=== PATIENT | male | born 1950 | race Caucasian/White ===

== ENCOUNTER 2022-11-08 11:28 | Inpatient (IN) | payer MEDICARE, SELFPAY ==
[2022-11-08] VITALS (30 sets, daily range): BP systolic 99–138; BP diastolic 49–103; PULSE 80–109; RESP 16–26; TEMP 36.1–37.1; O2SAT 95–100; BMI 30.8
--- NOTE | ~2022-11-08 | XR_ITS ---
XR chest 1V portable DATE: 11/14/2022 05:52 INDICATION: Pulmonary edema TECHNIQUE: Portable AP chest on 11/14/2022 at 0531 hours COMPARISON: portable AP chest at 0802 hours FINDINGS: Status post sternotomy and probable coronary bypass graft surgery. Cardiomegaly. Aortic arc h calcification. There is pulmonary vascular congestion. There is prominent left lower lobe infiltrate or atelectasis and mild diffuse infiltrate in the remai juan pablo lung oseguera. Pulmonary edema as well as pneumonia are considerations. Minimal blunting of left c ostophrenic angle suggests small left pleural effusion. No pneumothorax. IMPRESSION: Status post sternotomy and probable CABG Cardiac megaly, aortic atherosclerosis Congestive changes Bilateral infiltrates, most prominent in the left lower lobe Reviewed, dictated and finalized at location A.
--- NOTE | ~2022-11-08 | XR_ITS ---
Portable chest x-ray Comparison: 11/14/2022 Clinical History: Pulmonary edema Findings: There is minimal haziness which is relatively asymmetric in the left lung. Right lung esse ntially clear. No definite pleural effusion. Cardiomediastinal silhouette is stable, status post CAB G. Bones and soft tissues are unremarkable. Impression: Minimal asymmetric left lung haziness. Correlate for mild asymmetric pulmonary edema. Reviewed, dictated and finalized at location . Impression: Minimal asymmetric left lung haziness. Correlate for mild asymmetric pulmonary edema.
--- NOTE | ~2022-11-08 | XR_ITS ---
XR chest 2V 11/08/2022 12:41 Indication: Shortness of breath. CHF. Bilateral lower extremity edema. Procedure: 2 view chest Comparison: No prior studies for comparison. Findings: Status post median sternotomy for CABG. Cardiomegaly. Extensive bilateral airspace disease, left greater than right. Small pleural effusions. No pneumothorax. No acute osseous abnormality. Impression: 1: Extensive asymmetric anomaly left-sided airspace disease which may represent asymmetric edema or p neumonia. 2: Cardiomegaly. 3: Small pleural effusions. Reviewed, dictated and finalized at location B. Impression: 1: Extensive asymmetric anomaly left-sided airspace disease which may represent asymmetric edema or pneumonia. 2: Cardiomegaly. 3: Small pleural effusions.
--- NOTE | ~2022-11-08 | XR_ITS ---
EXAMINATION: XR chest 1V portable DATE: 11/13/2022 08:16 INDICATION: Assess fluid status TECHNIQUE: frontal view of the chest was obtained. COMPARISON: Chest radiograph dated 11/08/2022 FINDINGS: Diffuse interstitial and mild airspace opacities with peribronchial cuffing consistent with mild pulm onary edema. More dense retrocardiac opacities at the left lower lung zone with blunting at costophre david angle consistent with small left pleural effusion and associated atelectasis versus pneumonia. No pneumothorax or right-sided pleural effusion. Cardiomegaly. Median sternotomy wires and mediastinal surgical clips are seen, likely from prior coronary artery bypass grafting. IMPRESSION: 1. Likely congestive heart failure with cardiomegaly and diffuse mild pulmonary edema. 2. More dense opacity left lower lung zone consistent with small left pleural effusion and associated atelectasis and/or pneumonia. Reviewed, dictated and finalized at location A. IMPRESSION: 1. Likely congestive heart failure with cardiomegaly and diffuse mild pulmonary edema. 2. More dense opacity left lower lung zone consistent with small left pleural e ffusion and associated atelectasis and/or pneumonia.
--- NOTE | 2022-11-08 11:34 | ECG_ITS ---
Measurements Intervals [place] Rate: 98 P: HI: 0 QRS: 84 QRSD: 95 T: -23 QT: 359 QTc: 458 Interpretive Statements ATRIAL FIBRILLATION WITH ABERRANT CONDUCTION OR VENTRICULAR PREMATURE COMPLEXES NONSPECIFIC ST & T-WAVE ABNORMALITY COMPARED TO ECG 05/11/2018 11:07:37 ABERRANT CONDUCTION OF SUPRAVENTRICULAR BEAT(S) NOW PRESENT Electronically Signed On 11-09-2022 11:08:26 CDT by Brett Malik M.D.
[2022-11-08 12:43] LABS: Basophils Absolute Auto 0.1 K/mm3 (0.0-0.1); Basophils Percent Auto 0.8 % (0.2-1.2); Eosinophils Absolute Auto 0.1 K/mm3 (0-0.3); Eosinophils Percent Auto 0.8 % (0-4.4); Hematocrit 23.7 % (42.0-52.0); Immature Granulocyte Absolute 0.03 K/mm3 (0.00-0.031); Immature Granulocyte Percent A 0.3 % (0-0.5); Lymphocytes Absolute Auto 0.45 K/mm3 (0.9-3.2); Mean Corpuscular HGB Conc 29.1 g/dl (32-36); Mean Corpuscular Hemoglobin 23.8 pg (26-34); Mean Corpuscular Volume 81.7 fl (80-100); Mean Platelet Volume 10.8 fl (7.4-10.4); Monocytes Absolute Auto 1.5 K/mm3 (0.1-0.6); Monocytes Percent Auto 16.6 % (2.6-8.5); Neutrophils Absolute Auto 6.8 K/mm3 (1.3-6.7); Neutrophils Percent Auto 76.5 % (45.5-73.1); Platelet Count Result 244 k/mm3 (150-375); Red Cell Distribution Width 15.9 % (11.5-14.5); White Blood Count 8.9 K/mm3 (4.5-10.0)
[2022-11-08 12:52] LABS: Appearance Urine Cloudy (Clear); Bacteria Urine None Seen /hpf; Bilirubin Urine 1+ (Negative); Blood Urine 3+ (Negative); Color Urine Dark Yellow (Yellow); Glucose Urine UA Negative (Negative); Ketones Urine Negative (Negative); Leukocyte Esterase Ur 2+ LEU/UL (Negative); Nitrate Urine Negative (Negative); Non Pathogenic Casts 0-2; Protein Urine 1+ mg/dL (Negative); RBC Urine >100 /hpf (0-2); Specific Grav Ur 1.017 (1.001-1.035); Squamous Epithelial Cell Urine None seen /hpf (Few); WBC Urine 51-100 /hpf
[2022-11-08 12:53] LABS: Alanine Aminotransferase 22 U/L (6-50); Albumin Level 3.8 g/dL (3.5-5.1); Alkaline Phosphatase 89 U/L (38-126); Anion Gap 4 mmol/L (8-16); Aspartate Amino Transferase 27 U/L (17-59); Bilirubin,Total 1.1 mg/dL (0.2-1.3); Blood Urea Nitrogen 20 mg/dL (9-20); Carbon Dioxide 27 mmol/L (22-30); Chloride 97 mmol/L (98-107); Estimated Glomerular Filt Rate > 60; Glucose 111 mg/dL (65-110); Potassium 3.6 mmol/L (3.4-5.0); Sodium 128 mmol/L (137-145)
[2022-11-08 13:05] LABS: INR 2.2; Partial Thromboplastin Time 40.7 SECONDS (22.3-36.8)
[2022-11-08 13:06] LABS: Hemoglobin 6.9 g/dL (14.0-18.0); NT Pro B Type Natriuretic Pept 3720 pg/mL (19.9-100); Troponin I 0.181 ng/mL (0.000-0.034)
[2022-11-08 13:07] LABS: Hypochromasia 1+ (NORMAL); Platelet Estimate Adequate (Adequate)
[2022-11-08 13:08] LABS: Ovalocytes 2+ (NORMAL); Poikilocytosis 1+ (NORMAL); Schistocytes 1+ (NORMAL)
[2022-11-08 13:14] LABS: Add Urine Microscopic? YES
--- NOTE | 2022-11-08 14:10 | ED.SOB ---
HPI - SOB/Dyspnea General Chief Complaint: Shortness of Breath/Dyspnea Stated Complaint: CHF, SOB Time Seen by Provider: 11/08/22 13:23 History of Present Illness HPI Narrative: Patient is a 72-year-old male who presents ER with shortness of breath. Ongoing over the last 2 weeks. Associate with lower extremity edema. He does have history of CHF. Upon arrival he was found to have low O2 sats. Patient has cough with deep breath and also has orthopnea. He is anticoagulated on Eliquis chronically. He does have atrial fibrillation. Denies chest pain or chest pressure. Denies any dark black stools. Related Data Home Medications Medication Instructions Recorded Confirmed amlodipine 5 mg tablet 5 mg PO DAILY 11/08/22 11/08/22 apixaban 5 mg tablet (Eliquis) 5 mg PO BID 11/08/22 11/08/22 aspirin 81 mg tablet 81 mg PO DAILY 11/08/22 11/08/22 ferrous sulfate 47.5 mg PO DAILY 11/08/22 11/08/22 furosemide 20 mg tablet 20 mg PO DAILY 11/08/22 11/08/22 irbesartan 300 1 tablet PO DAILY 11/08/22 11/08/22 mg-hydrochlorothiazide 12.5 mg tablet isosorbide mononitrate 30 mg 30 mg PO DAILY 11/08/22 11/08/22 tablet,extended release 24 hr nebivolol 2.5 mg tablet 2.5 mg PO DAILY 11/08/22 11/08/22 omega-3 fatty acids 1,000 mg PO DAILY 11/08/22 11/08/22 ropinirole 0.25 mg tablet 0.25 mg PO BID 11/08/22 11/08/22 Allergies Allergy/AdvReac Type Severity Reaction Status Date / Time codeine Allergy Unknown Verified 04/06/18 09:22 propoxyphene Allergy Unknown Verified 04/06/18 09:22 Sulfa (Sulfonamide Allergy Unknown Verified 04/06/18 09:22 Antibiotics) clindamycin AdvReac Severe ACID REFLUX Verified 05/15/18 10:17 PROPOXYPHENE HCL Allergy Severe RASH, Uncoded 05/15/18 10:17 SWELLING PROPOXYPHENE NAPSYLATE Allergy Severe SWELLING, Uncoded 05/15/18 10:17 RASH Review of Systems Review of Systems: All systems reviewed & are unremarkable except as noted in HPI and below Constitutional: Constitutional: Denies chills, Reports fatigue and Denies fever(s) ENT: Denies nasal congestion and Denies sore throat Cardiovascular: Cardiovascular: Denies chest pain, Denies rapid heart rate and Denies radiating jaw, neck or arm pain Comments: Positive orthopnea Respiratory: Respiratory: Reports cough, Reports dyspnea and Denies wheezing Gastrointestinal: Gastrointestinal: Denies abdominal pain, Denies nausea and Denies vomiting Genitourinary: Genitourinary: Denies dysuria and Denies urinary frequency Integumentary/Breasts: Skin/Breast: Reports system reviewed and no additional complaints, except as docu Neurologic: Reports system reviewed and no additional complaints, except as documented [facility] Past Medical History Medical History (Updated 11/08/22 @ 19:25 by Nik Blue MD) Benign essential hypertension Chronic atrial fibrillation Gastroesophageal reflux disease without esophagitis Prostate cancer screening Umbilical hernia without obstruction and without gangrene Family History Family History Mother Diabetes mellitus Family history of arthritis Father Hypertension Family history of cardiovascular disease Family history of congestive heart failure Social History Social History Smoking packs per day: 2 Smoking cigarettes per day: 40.0 Years smoked: 22 Smoking pack-years: 44.00 Smoking status: Former smoker Alcohol intake: former Substance use: never Lack of Transportation: YES Lack of Food: Never True Current Housing: I Have Housing Concerned About Future Housing: No Difficulty Paying Gas/Electric Bills: No Difficulty Paying for Meds: No Currently Unemployed: No Education: High School Diploma/GED Difficulty w/ Childcare or Family Care: No Spiritual care concerns: No Exam Narrative: GENERAL: Chronically ill-appearing, well-nourished, and in no acute distress. HEAD: Normocephalic, atraumatic. EYES:
[2022-11-08] MEDS: ACETAMINOPHEN 325 MG TABLET 650 MG PO (14:20)
[2022-11-08] MEDS: FUROSEMIDE INJ 40 MG/4 ML VIAL IV PUSH (14:21)
[2022-11-08] MEDS: AZITHROMYCIN 500 MG/NS 250 ML 500 MG/250 ML BAG 250 MG IVPB (14:56)
[2022-11-08] MEDS: SODIUM CHLORIDE 0.9% IV 250 ML 30 ML IV CONT (16:57)
[2022-11-08] MEDS: TUBING, BLOOD PLUM PUMP TUBING 1 EACH XX (16:58)
--- NOTE | 2022-11-08 17:29 | ADMGEN ---
This patient, Jose Bhatti, was admitted to IMU Room 207-01. Patient/family oriented to hospital policies and general routines including ID bracelet, bed and alarms, visiting hours, pain management, procedures, bathroom and other care routines, personal items, smoking policy, room service/diet, and visiting hours. Information on how to activate the Rapid Response Team has been discussed. Patient/Family are encouraged to report perceived risks to care and to ask questions if they do not understand what they are told or what they should do.
[2022-11-08 17:38] LABS: Troponin I 0.332 ng/mL (0.000-0.034)
[2022-11-08] MEDS: HYDROcodone/acetaminophen (*CRX) 5-325 MG TABLET 1 TAB PO (18:36)
--- NOTE | 2022-11-08 19:06 | PM.IMHP ---
H&P: HPI History of Present Illness Date/Time: 11/08/22 19:06 Chief Complaint: Shortness of breathe Narrative: This a 72-year-old male patient came to the emergency room for shortness of breath. This has been occurring for least 2 weeks. The patient also has some lower extremity edema. He does have a history of congestive heart failure. The patient was found have low O2 saturation was placed on oxygen at 2 L per nasal cannula. The patient does not typically wear oxygen at home the patient is anticoagulated san on Eliquis chronically. He does have a history of atrial fibrillation. The patient denied any chest pain or chest pressure he denies any dark stools. His hemoglobin was noted to be 6.9 and hematocrit 23.7 but no prior labs for comparison. Patient's MCV was within normal limits. Sodium is 128 again no labs for comparison. Troponin 0.181, 0.332, and 0.241. BNp 3720. The patient is positive for urinary tract infection. Chest x ray : Extensive asymmetric anomaly left-sided airspace disease which may represent asymmetric edema or pneumonia. 2:? Cardiomegaly. 3:? Small pleural effusions. The patient was started on a azithromycin and rocephin. IV Lasix, IV fluids and a 2 units of prbcs blood transfusion . cardiology has been consulted. The patient typically has all of his care performed at [facility] in [place]. the patient is being admitted to observation status on the date of service of . Review of Systems Review of Systems: All systems reviewed & are unremarkable except as noted in HPI and below Constitutional: Constitutional: Reports as per HPI and Reports no additional constitutional complaints Eyes: Eyes: Reports as per HPI and Reports no additional eye complaints ENT: Reports system reviewed and no additional complaints, except as documented and Reports Normal hearing present Cardiovascular: Cardiovascular: Reports no additional cardiovascular complaints Respiratory: Respiratory: Reports no additional respiratory complaints and Reports no additional respiratory complaints Gastrointestinal: Gastrointestinal: Reports as per HPI and Reports no additional gastrointestinal complaints Musculoskeletal: Musculoskeletal: Reports no additional musculoskeletal complaints Integumentary/Breasts: Skin/Breast: Reports system reviewed and no additional complaints, except as docu and Reports as per HPI Neurologic: Reports system reviewed and no additional complaints, except as documented, Reports as per HPI and Reports Normal hearing present Psychiatric: Psychiatric: Reports no additional psychiatric complaints and Reports as per HPI Endocrine: Endocrine: Reports no additional endocrine complaints Hematologic/Lymphatic: Hematologic/Lymphatic: Reports no additional hematologic/lymphatic complaints Allergic/Immunologic: Allergic/Immunologic: Reports no additional allergic/immunologic complaints [facility] Past Medical History Medical History (Updated 11/08/22 @ 23:52 by Catrachita Rebolledo NP) Benign essential hypertension Bladder cancer Chronic atrial fibrillation DVT (deep venous thrombosis) Gastroesophageal reflux disease without esophagitis Hyperlipidemia Hypertension Prostate cancer screening Umbilical hernia without obstruction and without gangrene UTI (urinary tract infection) Surgical History Surgical History (Updated 11/08/22 @ 23:47 by Catrachita Rebolledo NP) H/O cataract extraction H/O four vessel coronary artery bypass graft H/O heart artery stent History of appendectomy History of bladder surgery History of tonsillectomy and adenoidectomy S/P colonoscopy with polypectomy Family History Family History Mother Diabetes mellitus Family history of arthritis Father Hypertension Family history of cardiovascular disease Family history of congestive heart failure Social History Social History (Updated 11/08/22 @ 23:48 by Catrachita
[2022-11-08 20:49] LABS: Troponin I 0.241 ng/mL (0.000-0.034)
[2022-11-09] VITALS (28 sets, daily range): BP systolic 91–123; BP diastolic 42–77; PULSE 75–128; RESP 16–22; TEMP 36.4–37.7; O2SAT 93–100; BMI 30.9
[2022-11-09] MEDS: HYDROcodone/acetaminophen (*CRX) 5-325 MG TABLET 1 TAB PO ×3 (00:28→22:24)
[2022-11-09 00:29] LABS: Hematocrit 26.2 % (42.0-52.0); Hemoglobin 7.7 g/dL (14.0-18.0)
[2022-11-09] MEDS: TUBING, BLOOD PLUM PUMP TUBING 1 EACH XX (00:29)
[2022-11-09 01:22] LABS: SARS-CoV-2 RNA PCR Negative (Negative)
[2022-11-09] MEDS: IPRATROPIUM BR 0.02% INH SOLN 0.5 MG/2.5 ML VIAL INHALATION ×4 (01:41→20:00)
[2022-11-09] MEDS: ALBUTEROL SULFATE NEB 2.5 MG/3 ML INH INHALATION ×4 (01:41→20:00)
[2022-11-09 05:03] LABS: Basophils Absolute Auto 0.1 K/mm3 (0.0-0.1); Basophils Percent Auto 0.6 % (0.2-1.2); Eosinophils Absolute Auto 0.1 K/mm3 (0-0.3); Eosinophils Percent Auto 0.8 % (0-4.4); Hematocrit 29.1 % (42.0-52.0); Hemoglobin 8.7 g/dL (14.0-18.0); Immature Granulocyte Absolute 0.08 K/mm3 (0.00-0.031); Immature Granulocyte Percent A 0.6 % (0-0.5); Lymphocytes Absolute Auto 0.66 K/mm3 (0.9-3.2); Lymphocytes Percent Auto 4.7 % (18.3-44.2); Mean Corpuscular HGB Conc 29.9 g/dl (32-36); Mean Corpuscular Hemoglobin 25.1 pg (26-34); Mean Corpuscular Volume 83.9 fl (80-100); Monocytes Absolute Auto 1.5 K/mm3 (0.1-0.6); Monocytes Percent Auto 10.6 % (2.6-8.5); Neutrophils Absolute Auto 11.6 K/mm3 (1.3-6.7); Neutrophils Percent Auto 82.7 % (45.5-73.1); Platelet Count Result 213 k/mm3 (150-375); Red Blood Count 3.47 M/mm3 (4.6-6.20); Red Cell Distribution Width 16.7 % (11.5-14.5)
[2022-11-09 05:10] LABS: Lactic Acid Reflex 0.9 mmol/L (0.7-2.0)
[2022-11-09 05:13] LABS: Alanine Aminotransferase 21 U/L (6-50); Albumin Level 3.8 g/dL (3.5-5.1); Alkaline Phosphatase 87 U/L (38-126); Anion Gap 9 mmol/L (8-16); Aspartate Amino Transferase 27 U/L (17-59); Bilirubin,Total 2.7 mg/dL (0.2-1.3); Blood Urea Nitrogen 16 mg/dL (9-20); Calcium 8.5 mg/dL (8.4-10.2); Carbon Dioxide 27 mmol/L (22-30); Chloride 96 mmol/L (98-107); Estimated CRCL calculation 93 ml/min; Estimated Glomerular Filt Rate > 60; Glucose 105 mg/dL (65-110); Magnesium 1.9 mg/dL (1.6-2.3); Potassium 3.6 mmol/L (3.4-5.0); Sodium 132 mmol/L (137-145)
[2022-11-09 05:40] LABS: Thyroid Stimulating Hormone Reflex 0.937 uIU/mL (0.465-4.68)
[2022-11-09 05:50] LABS: Platelet Estimate Adequate (Adequate)
[2022-11-09 05:51] LABS: Anisocytosis 1+ (NORMAL); Hypochromasia 1+ (NORMAL); Poikilocytosis 2+ (NORMAL); Polychromasia 1+ (NORMAL)
[2022-11-09 05:52] LABS: Microcytosis 1+ (NORMAL); Schistocytes Rare (NORMAL)
[2022-11-09] MEDS: rOPINIRole HCL 0.25 MG TABLET PO ×2 (09:05→20:53)
[2022-11-09] MEDS: OMEGA 3 POLYUNSAT FATTY ACIDS 1 GM CAP PO (09:05)
[2022-11-09] MEDS: amLODIPine BESYLATE 5 MG TABLET PO (09:06)
[2022-11-09] MEDS: NEBIVOLOL HCL 2.5 MG TABLET PO (09:06)
[2022-11-09] MEDS: FERROUS SULFATE DRIED 142 MG TABCR PO (09:06)
[2022-11-09] MEDS: ASPIRIN 81 MG ENTERIC TABLET PO (09:06)
[2022-11-09] MEDS: FUROSEMIDE INJ 40 MG/4 ML VIAL IV PUSH ×2 (09:06→13:31)
[2022-11-09] MEDS: ISOSORBIDE MONONITRATE 30 MG TAB.ER.24H PO (09:07)
[2022-11-09] MEDS: IRBESARTAN 150 MG TABLET 300 MG PO (09:07)
[2022-11-09] MEDS: APIXABAN 5 MG TABLET PO ×2 (09:07→20:53)
[2022-11-09] MEDS: hydroCHLOROthiazide 12.5 MG CAPSULE PO (09:07)
[2022-11-09 11:21] LABS: Hemoglobin 8.4 g/dL (14.0-18.0)
--- NOTE | 2022-11-09 11:26 | PM.CNCAR ---
Assessment and Plan Assessment and plan (1) Acute on chronic diastolic CHF (congestive heart failure): Code(s): I50.33 - Acute on chronic diastolic (congestive) heart failure Status: Acute Assessment and Plan: Acute on chronic heart failure, presumably diastolic, aggravated by severe anemia. --requesting old records and echo from [place] from his hospitalization in August --extra furosemide 40 mg today, and continue 40 mg IV push daily --daily BMP --further recommendations to follow (2) Elevated troponin: Code(s): R77.8 - Other specified abnormalities of plasma proteins Status: Acute Assessment and Plan: Mildly elevated troponins noted, with no anginal chest pain and no ischemic EKG changes. Nonischemic myocardial injury due to CHF, anemia, and AFib RVR. No further workup needed. (3) Persistent atrial fibrillation: Code(s): I48.19 - Other persistent atrial fibrillation Status: Acute Assessment and Plan: AFib, probably persistent, at times with RVR and heart rates in the 120s-130s. Aggravated by the patient's anemia and CHF. --Eliquis is being continued due to lack of overt acute bleeding --patient's home nebivolol 2.5 mg is being continued --will add p.r.n. IV Lopressor to control heart rate --hopefully heart rate will improve as patient becomes better compensated. (4) Microcytic anemia: Code(s): D50.9 - Iron deficiency anemia, unspecified Status: Acute Assessment and Plan: Severe microcytic anemia, no overt bleeding. Status post 2 units of packed cells overnight. This apparently is his 3rd blood transfusion in the last 6 months. Has not had a GI evaluation yet but that is planned for the future. --continue Nexium --daily H&H (5) History of CAD (coronary artery disease): Code(s): Z86.79 - Personal history of other diseases of the circulatory system Status: Acute Assessment and Plan: Remote CABG, coronary stents since then, no anginal problems. --recommend DC aspirin due to anemia and continue Eliquis --not on a statin; will ask pt/daughter why not. (6) Aortic valve disease: Code(s): I35.9 - Nonrheumatic aortic valve disorder, unspecified Status: Acute Assessment and Plan: Exam suggested degree of aortic stenosis and mitral regurgitation. Had an echo done in August and was told nothing to worry about. --requesting echo results from [place] (7) DVT (deep venous thrombosis): Code(s): I82.409 - Acute embolism and thrombosis of unspecified deep veins of unspecified lower extremity Status: Acute Assessment and Plan: Remote DVT ; not likely to be a problem at present due to pt taking Eliquis. History of Present Illness History of Present Illness Consult date/time: 11/09/22 11:26 Reason For Visit: Anemia/Hypoxia/Pneumonia/CHF Narrative: Jose Bhatti is a 72 y.o.male whom we were asked to see at the request of Dr. Nik Blue for our advice and opinion regarding elevated troponins in CHF exacerbation, in consultation. He has a history of CHF and atrial fibrillation. His primary care doctor is Dr. Garcia, and he sees Dr. Gould at [facility]. The patient has had shortness of breath, cough, orthopnea and lower extremity edema for the last 2 weeks. He was hypoxic on admission to the emergency room and started on O2. He was found to be in heart failure by chest x-ray and elevated pro BNP of 3700. Also a microcytic anemic with a hematocrit of 24. Troponins were: 0.181, 0.332 and 0.241. He was given a dose of Lasix IV yesterday and this morning. He is being started on antibiotics for possible pneumonia and UTI. He had 2 units of packed cells on admission as well. The Mr. Bhatti had a heart attack complicated by heart failure and 4 vessel CABG in the . Since then he has had stents and balloon angioplasty, but nothing recently. He does not hav
[2022-11-09] MEDS: BENZONATATE 100 MG CAPSULE PO ×2 (13:28→18:04)
[2022-11-09] MEDS: guaiFENesin 12 HR 600 MG TABCR PO ×2 (13:28→20:53)
[2022-11-09] MEDS: AZITHROMYCIN 500 MG/NS 250 ML 500 MG/250 ML BAG 250 MG IVPB (14:07)
--- NOTE | 2022-11-09 15:25 | PM.IMPN ---
Progress Note: A&P Assessment and Plan (1) Anemia: Code(s): D64.9 - Anemia, unspecified Status: Acute Assessment and Plan: The patient has been type and crossmatch and given 2 units packed red blood cells. The patient is on Eliquis for DVTs the patient denies having any active bleeding. We will check his stool for occult blood, continue with iron supplement MCV is normal. H&H is 6.9 and 23.7 check H&H every 6 hours (2) Pneumonia: Code(s): J18.9 - Pneumonia, unspecified organism Status: Acute Assessment and Plan: Azithromycin and Rocephin have been started. (3) UTI (urinary tract infection): Code(s): N39.0 - Urinary tract infection, site not specified Status: Acute Assessment and Plan: Rocephin ordered. Blood and urine cultures are pending (4) Hyponatremia: Code(s): E87.1 - Hypo-osmolality and hyponatremia Status: Acute Assessment and Plan: Watch bmp and sodium levels (5) Hyperlipidemia: Code(s): E78.5 - Hyperlipidemia, unspecified Status: Acute Assessment and Plan: The patient is intolerant of statins. Continue with [place] 3 (6) DVT (deep venous thrombosis): Code(s): I82.409 - Acute embolism and thrombosis of unspecified deep veins of unspecified lower extremity Status: Acute Assessment and Plan: Continue with Eliquis is the patient is not actively bleeding (7) Hypertension: Code(s): I10 - Essential (primary) hypertension Status: Acute Assessment and Plan: Continue with amlodipine, Avapro and bystolic (8) CHF (congestive heart failure): Code(s): I50.9 - Heart failure, unspecified Status: Acute Assessment and Plan: The patient has had most of his medical care at [facility] we will attempt to get his echo results from that hospital. Continue with Lasix and beta-sofy Subjective Date/time seen: 11/09/22 15:25 Interval history: 72-year-old male patient came to the emergency room for shortness of breath.? This has been occurring for least 2 weeks.? The patient also has some lower extremity edema.? He does have a history of congestive heart failure.? The patient was found have low O2 saturation was placed on oxygen at 2 L per nasal cannula.? The patient does not typically wear oxygen at home the patient is anticoagulated san on Eliquis chronically.? Pt found to have pneumonia and fluid overload on CXR Pt being treated for pneumonia and CHF Review of Systems Review of Systems: Complains of cough Exam Const: General: healthy appearing, comfortable, no acute distress, well developed, alert, awake, Physically active, average body habitus, well nourished and overweight Objective Data Vital Signs Vital Signs: Vital Signs - 24 hr 11/08/22 15:30 11/08/22 15:31 11/08/22 15:45 Temperature Pulse Rate 109 H 101 H 109 H Respiratory Rate 21 H 21 H 20 Blood Pressure 108/64 Pulse Oximetry 99 98 Oxygen Delivery Oxygen Flow Rate 11/08/22 15:46 11/08/22 16:00 11/08/22 16:01 Temperature Pulse Rate 96 107 H 98 Respiratory Rate 21 H 21 H 18 Blood Pressure 111/49 L 132/77 Pulse Oximetry 99 99 100 Oxygen Delivery Oxygen Flow Rate 11/08/22 16:48 11/08/22 17:08 11/08/22 17:25 Temperature 37.1 C 36.9 C 36.1 C L Pulse Rate 98 96 93 Respiratory Rate 25 H 17 20 Blood Pressure 121/77 121/89 120/69 Pulse Oximetry 100 98 100 Oxygen Delivery Oxygen Flow Rate 11/08/22 18:05 11/08/22 19:08 11/08/22 17:30 Temperature 36.1 C L 36.4 C L Pulse Rate 93 88 100 Respiratory Rate 20 24 H Blood Pressure 120/69 122/63 Pulse Oximetry 100 98 Oxygen Delivery Oxygen Flow Rate 11/08/22 18:00 11/08/22 17:30 11/08/22 20:00 Temperature 36.4 C Pulse Rate 98 88 Respiratory Rate 18 Blood Pressure 121/61 Pulse Oximetry 98 98 Oxygen Delivery Nasal Cannula Oxygen Flow Rate 1 11/08/22 20:08
[2022-11-09 18:13] LABS: Hematocrit 30.8 % (42.0-52.0); Hemoglobin 9.2 g/dL (14.0-18.0)
[2022-11-10] VITALS (19 sets, daily range): BP systolic 83–108; BP diastolic 41–63; PULSE 58–152; RESP 16–20; TEMP 36.1–36.8; O2SAT 93–99
[2022-11-10] MEDS: ALBUTEROL SULFATE NEB 2.5 MG/3 ML INH INHALATION ×4 (02:05→19:31)
[2022-11-10] MEDS: IPRATROPIUM BR 0.02% INH SOLN 0.5 MG/2.5 ML VIAL INHALATION ×4 (02:05→19:31)
[2022-11-10 05:40] LABS: Anion Gap 5 mmol/L (8-16); Blood Urea Nitrogen 20 mg/dL (9-20); Calcium 8.5 mg/dL (8.4-10.2); Carbon Dioxide 29 mmol/L (22-30); Chloride 92 mmol/L (98-107); Estimated CRCL calculation 67 ml/min; Estimated Glomerular Filt Rate > 60; Glucose 101 mg/dL (65-110); Potassium 3.4 mmol/L (3.4-5.0); Sodium 126 mmol/L (137-145)
[2022-11-10] MEDS: IRBESARTAN 150 MG TABLET 300 MG PO (09:00)
[2022-11-10] MEDS: PANTOPRAZOLE 40 MG TABLET PO (09:01)
[2022-11-10] MEDS: BENZONATATE 100 MG CAPSULE PO ×3 (09:01→16:12)
[2022-11-10] MEDS: rOPINIRole HCL 0.25 MG TABLET PO ×2 (09:01→22:12)
[2022-11-10] MEDS: guaiFENesin 12 HR 600 MG TABCR PO ×2 (09:01→22:11)
[2022-11-10] MEDS: NEBIVOLOL HCL 2.5 MG TABLET PO ×2 (09:01→15:04)
[2022-11-10] MEDS: hydroCHLOROthiazide 12.5 MG CAPSULE PO (09:01)
[2022-11-10] MEDS: APIXABAN 5 MG TABLET PO ×2 (09:01→22:11)
[2022-11-10] MEDS: OMEGA 3 POLYUNSAT FATTY ACIDS 1 GM CAP PO (09:01)
[2022-11-10] MEDS: FERROUS SULFATE DRIED 142 MG TABCR PO (09:01)
[2022-11-10] MEDS: ISOSORBIDE MONONITRATE 30 MG TAB.ER.24H PO (09:01)
[2022-11-10] MEDS: amLODIPine BESYLATE 5 MG TABLET PO (09:01)
[2022-11-10] MEDS: FUROSEMIDE INJ 40 MG/4 ML VIAL IV PUSH ×2 (09:02→16:12)
--- NOTE | 2022-11-10 10:55 | PM.PNCARD ---
Progress Note: A&P Assessment and Plan (1) Acute on chronic diastolic CHF (congestive heart failure): Code(s): I50.33 - Acute on chronic diastolic (congestive) heart failure Status: Acute Assessment and Plan: Acute on chronic heart failure, presumably diastolic, aggravated by severe anemia. Improving but not at goal. --requesting old records and echo from [facility] from his hospitalization in August --Increase furosemide 40 mg qd to BID --Add Kcl since K+borderline low --daily BMP --PT advised to reduce fluid intake --Cont irbesartan, BB --further recommendations to follow (Farxiga, spironolactone, etc?) (2) Elevated troponin: Code(s): R77.8 - Other specified abnormalities of plasma proteins Status: Acute Assessment and Plan: Mildly elevated troponins noted, with no anginal chest pain and no ischemic EKG changes. Nonischemic myocardial injury due to CHF, anemia, and AFib RVR. No further workup needed. (3) Persistent atrial fibrillation: Code(s): I48.19 - Other persistent atrial fibrillation Status: Acute Assessment and Plan: AFib, probably persistent, at times with RVR and heart rates in the 120s-130s. Aggravated by the patient's anemia and CHF. STill a little tachycardic at times. --Eliquis is being continued due to lack of overt acute bleeding --Increase patient's home nebivolol to 5 mg qd --will add p.r.n. IV Lopressor to control heart rate --hopefully heart rate will improve as patient becomes better compensated. (4) Microcytic anemia: Code(s): D50.9 - Iron deficiency anemia, unspecified Status: Acute Assessment and Plan: Severe microcytic anemia, no overt bleeding. Status post 2 units of packed cells on admission. This apparently is his 3rd blood transfusion in the last 6 months. Has not had a GI evaluation yet but that is planned for the future. --continue Nexium --daily H&H --FOB pending --H&H in a.m. (5) History of CAD (coronary artery disease): Code(s): Z86.79 - Personal history of other diseases of the circulatory system Status: Acute Assessment and Plan: Remote CABG, coronary stents since then, no anginal problems. --recommend DC aspirin due to anemia and continue Eliquis --not on a statin; apparently intolerant. --Add ezetamibe (6) Aortic valve disease: Code(s): I35.9 - Nonrheumatic aortic valve disorder, unspecified Status: Acute Assessment and Plan: Exam suggested degree of aortic stenosis and mitral regurgitation. Had an echo done in August and was told nothing to worry about. --requesting echo results from [facility] (7) DVT (deep venous thrombosis): Code(s): I82.409 - Acute embolism and thrombosis of unspecified deep veins of unspecified lower extremity Status: Acute Assessment and Plan: Remote DVT ; not likely to be a problem at present due to pt taking Eliquis. Subjective Date/time seen: 11/10/22 10:55 Interval history: Follow-up for patient acute on chronic ( diastolic? ) CHF, atrial fibrillation, possoible pneumonia. History of CAD CABG, and stents. The patient has had problems with anemia over the last few months and has had 2 prior blood transfusions, and also required 2 units of packed cells for a hematocrit of 24 this admission. Patient's usual student education specialist is Dr. Jarrett at [facility]. Date of service 11/10/2022: Less short of breath, cough has improved, on 1 L nasal cannula. I's and O's 3800/1400 cc's. Records from [facility] and [facility] have not arrive. Telemetry: Atrial fibrillation, rate 85-125 ppm. Review of Systems Review of Systems: Now admits that on admission he had some pleuritic chest pain. No chest pain, breathing better, edema same, no shortness of breath going to the bedside commode, complains of constipation Exam Const: General: cooperative, healthy appearing and comfortable; No confusion Or
--- NOTE | 2022-11-10 14:34 | PM.IMPN ---
Progress Note: A&P Assessment and Plan (1) Anemia: Code(s): D64.9 - Anemia, unspecified Status: Acute Assessment and Plan: The patient has been type and crossmatch and given 2 units packed red blood cells. The patient is on Eliquis for DVTs the patient denies having any active bleeding. watch hb (2) Pneumonia: Code(s): J18.9 - Pneumonia, unspecified organism Status: Acute Assessment and Plan: Azithromycin and Rocephin have been started. (3) UTI (urinary tract infection): Code(s): N39.0 - Urinary tract infection, site not specified Status: Acute Assessment and Plan: Rocephin ordered. Blood and urine cultures are pending (4) Hyponatremia: Code(s): E87.1 - Hypo-osmolality and hyponatremia Status: Acute Assessment and Plan: Watch bmp and sodium levels (5) Hyperlipidemia: Code(s): E78.5 - Hyperlipidemia, unspecified Status: Acute Assessment and Plan: The patient is intolerant of statins. Continue with [place] 3 (6) DVT (deep venous thrombosis): Code(s): I82.409 - Acute embolism and thrombosis of unspecified deep veins of unspecified lower extremity Status: Acute Assessment and Plan: Continue with Eliquis is the patient is not actively bleeding (7) Hypertension: Code(s): I10 - Essential (primary) hypertension Status: Acute Assessment and Plan: Continue with amlodipine, Avapro and bystolic (8) CHF (congestive heart failure): Code(s): I50.9 - Heart failure, unspecified Status: Acute Assessment and Plan: The patient has had most of his medical care at [facility] we will attempt to get his echo results from that hospital. Continue with Lasix and beta-sofy Subjective Date/time seen: 11/10/22 14:34 Interval history: 72-year-old male patient came to the emergency room for shortness of breath.? This has been occurring for least 2 weeks.? The patient also has some lower extremity edema.? He does have a history of congestive heart failure.? The patient was found have low O2 saturation was placed on oxygen at 2 L per nasal cannula.? The patient does not typically wear oxygen at home the patient is anticoagulated san on Eliquis chronically.? Pt found to have pneumonia and fluid overload on CXR Pt being treated for pneumonia and CHF Exam Const: General: healthy appearing, comfortable, no acute distress, well developed, alert, awake, Physically active, average body habitus, well nourished and overweight Nutritional Appearance: average body habitus, well nourished and overweight Orientation/consciousness: oriented to person, oriented to place, oriented to time and patient oriented x3 Limitations: no limitations Other: Patient is slow to respond to questions Chest: Chest palpation & inspection: normal inspection of the chest Resp: Effort & Inspection: normal respiratory effort Auscultation: clear to auscultation bilaterally Cardio: Palpation: normal PMI Rate: regular rate Rhythm: regular rhythm Heart sounds: S1 normal heart sound present and S2 normal heart sound present Peripheral pulses: Peripheral pulses 2+ throughout GI: Inspection: normal to inspection Auscultation: normal bowel sounds Rectal Exam: deferred Back/Spine/Pelvis: Cervical Spine: cervical ROM normal Skin: General skin exam: normal color Lesions: no lesions Rashes: no rashes Trauma: no lacerations or abrasions Wounds: no wounds Hair: normal Nails: normal Neuro: General: oriented to person, oriented to place, oriented to time and patient oriented x3 Cranial nerves: Yes Equal, round and reactive pupils present and Yes Normal hearing present Cognition (Neuro): normal cognition Speech: normal speech Gait exam (Neuro): Normal gait present Motor exam (neuro): 5/5 motor strength present throughout Sensory Exam: normal sensation Extrem: General: normal to inspection Right upper ex
[2022-11-10] MEDS: AZITHROMYCIN 500 MG/NS 250 ML 500 MG/250 ML BAG 250 MG IVPB (14:57)
[2022-11-10] MEDS: HYDROcodone/acetaminophen (*CRX) 5-325 MG TABLET 1 TAB PO (16:12)
[2022-11-10] MEDS: POTASSIUM CHLORIDE 20 MEQ ER TABLET PO (16:13)
[2022-11-11] VITALS (20 sets, daily range): BP systolic 94–120; BP diastolic 48–60; PULSE 80–110; RESP 16–20; TEMP 36.3–36.8; O2SAT 91–99
[2022-11-11] MEDS: ALBUTEROL SULFATE NEB 2.5 MG/3 ML INH INHALATION ×4 (02:41→20:13)
[2022-11-11] MEDS: IPRATROPIUM BR 0.02% INH SOLN 0.5 MG/2.5 ML VIAL INHALATION ×4 (02:41→20:13)
[2022-11-11 04:57] LABS: Hematocrit 26.5 % (42.0-52.0)
[2022-11-11 05:13] LABS: Anion Gap 4 mmol/L (8-16); Blood Urea Nitrogen 22 mg/dL (9-20); Carbon Dioxide 29 mmol/L (22-30); Chloride 92 mmol/L (98-107); Estimated CRCL calculation 74 ml/min; Estimated Glomerular Filt Rate > 60; Glucose 103 mg/dL (65-110); Potassium 3.2 mmol/L (3.4-5.0); Sodium 125 mmol/L (137-145)
--- NOTE | 2022-11-11 09:19 | PM.PNCARD ---
Progress Note: A&P Assessment and Plan (1) Acute on chronic diastolic CHF (congestive heart failure): Code(s): I50.33 - Acute on chronic diastolic (congestive) heart failure Status: Acute Assessment and Plan: Acute on chronic heart failure, presumably diastolic, aggravated by severe anemia. Improving but not at goal. --requesting old records and echo from [facility] from his hospitalization in August--still none received, will order an echo. --Dr. Hawthorne reduced furosemide from 40 mg BID to 20 mg IVP BID --Increase Kcl since hypokalemic --daily BMP --PT advised to reduce fluid intake --Cont irbesartan, BB --further recommendations to follow (Farxiga, spironolactone, etc?) (2) Elevated troponin: Code(s): R77.8 - Other specified abnormalities of plasma proteins Status: Acute Assessment and Plan: Mildly elevated troponins noted, with no anginal chest pain and no ischemic EKG changes. Nonischemic myocardial injury due to CHF, anemia, and AFib RVR. No further workup needed. (3) Persistent atrial fibrillation: Code(s): I48.19 - Other persistent atrial fibrillation Status: Acute Assessment and Plan: AFib, probably persistent, at times with RVR and heart rates in the 120s-130s. Aggravated by the patient's anemia and CHF. Improving with treatment of CHF and increasing the patient's nebivolol to 5 mg daily. --Eliquis was being continued due to lack of overt acute bleeding, but since his H&H has declined I recommend discontinuing this. --Added p.r.n. IV Lopressor to control heart rate --patient is understandably concerned about stopping his Eliquis as he does not want to have a stroke. I think the risk is low if we hold it for a couple of weeks and hopefully his acute bleeding lesion will heal and resolve but he still needs to address the etiology. (4) Microcytic anemia: Code(s): D50.9 - Iron deficiency anemia, unspecified Status: Acute Assessment and Plan: Severe microcytic anemia. Status post 2 units of packed cells on admission. This apparently is his 3rd blood transfusion in the last 6 months. H&H declined today. PMD Dr. Garcia has recommended GI evaluation which the patient has been reluctant to pursue; patient is adamant he wants his director surface transportation, Dr. Jarrett, approve of a GI evaluation 1st. --continue Nexium --daily H&H --FOB pending --ASA DC'd on admission. --DC Eliquis since H&H declined. --FU w/ usual director surface transportation after discharge for consideration of a left atrial appendage occluder or resumption of AC depending on GI evaluation. Has an appointment with Dr. Jarrett on . --I also recommended the patient call Dr. Garcia, get a referral for GI consultation and make an appointment to get the process started. (5) History of CAD (coronary artery disease): Code(s): Z86.79 - Personal history of other diseases of the circulatory system Status: Acute Assessment and Plan: Remote CABG, coronary stents since then, no anginal problems. --DC'd aspirin due to anemia --not on a statin; intolerant due to muscle cramps. --Added ezetamibe --follow-up with Dr. Jarrett for further treatment (6) Aortic valve disease: Code(s): I35.9 - Nonrheumatic aortic valve disorder, unspecified Status: Acute Assessment and Plan: Exam suggested degree of aortic stenosis and mitral regurgitation. Had an echo done in August and was told nothing to worry about. --requesting echo results from [facility] (7) DVT (deep venous thrombosis): Code(s): I82.409 - Acute embolism and thrombosis of unspecified deep veins of unspecified lower extremity Status: Acute Assessment and Plan: Remote DVT ; not likely to be a problem at present due to pt taking Eliquis. --STarting lovenox for DVT prophylaxis. Subjective Date/time seen: 11/11/22 09:19 Interval history: Follow-up for patient acute on chronic ( diastolic? )
[2022-11-11] MEDS: EZETIMIBE 10 MG TABLET PO (09:34)
[2022-11-11] MEDS: PANTOPRAZOLE 40 MG TABLET PO (09:34)
[2022-11-11] MEDS: amLODIPine BESYLATE 5 MG TABLET PO (09:35)
[2022-11-11] MEDS: ISOSORBIDE MONONITRATE 30 MG TAB.ER.24H PO (09:35)
[2022-11-11] MEDS: POTASSIUM CHLORIDE 20 MEQ ER TABLET PO ×3 (09:35→18:09)
[2022-11-11] MEDS: IRBESARTAN 150 MG TABLET 300 MG PO (09:35)
[2022-11-11] MEDS: BENZONATATE 100 MG CAPSULE PO ×3 (09:35→18:08)
[2022-11-11] MEDS: guaiFENesin 12 HR 600 MG TABCR PO ×2 (09:35→19:46)
[2022-11-11] MEDS: OMEGA 3 POLYUNSAT FATTY ACIDS 1 GM CAP PO (09:35)
[2022-11-11] MEDS: FERROUS SULFATE DRIED 142 MG TABCR PO (09:35)
[2022-11-11] MEDS: hydroCHLOROthiazide 12.5 MG CAPSULE PO (09:35)
[2022-11-11] MEDS: FUROSEMIDE INJ 40 MG/4 ML VIAL 20 MG IV PUSH ×2 (09:36→18:09)
[2022-11-11] MEDS: rOPINIRole HCL 0.25 MG TABLET PO ×2 (09:36→19:45)
[2022-11-11] MEDS: BISACODYL 5 MG TABLET EC PO (09:52)
--- NOTE | 2022-11-11 10:15 | ECHO_ITS ---
Patient Info Name: Jose Bhatti Age: 72 years : 1950 Gender: Male Ht: 70 in Wt: 224 lbs BSA: 2.27 m2 HR: 101 bpm BP: 120 / 52 mmHg Heart Rhythm: Atrial Fibrillation Technical Quality: Fair Exam Date: 11/11/2022 4:35 PM Exam Location: [facility] Pulmonary Patient Status: Inpatient Admit Date: 11/10/2022 Staff Ordering Physician: Sayra Arceo MD Animal Physiologist: Isabel Osman RDCS Attending Provider: Jose Aguilar MD Referring Physician: Adis EASLEY; Exam Type: CA echo dop color flow w con Study Info Indications - chf Complete two-dimensional, color flow and Doppler transthoracic echocardiogram is performed with contrast to opacify the left ventricle and to improve the deliniation of the left ventricle endocardial borders. Contrast/Agitated Saline Contrast/Ag. Saline: Definity Amount: 3.00 ml Administered By: Isabel Osman RDCS Existing IV Access: Yes IV Access Condition: patent with no signs of infiltration Summary 1. Technically somewhat challenging exam. 2. Modest left ventricular enlargement with good systolic function. 3. Severe biatrial dilation. 4. Aortic valve stenosis valve area 1.1 cm2. 5. Trivial mitral and tricuspid valve regurgitation. 6. Atrial fibrillation. Left Ventricle Left ventricular chamber dimension is mildly enlarged. Left ventricular systolic function is normal, estimated at 50-55%. The left ventricular diastolic function is indeterminate. Right Ventricle Right ventricular chamber dimension is normal. Left Atria Left atrial chamber dimension is severely enlarged. Right Atria Right atrial chamber dimension is severely enlarged. Aortic Valve The aortic valve is trileaflet. There is moderate aortic valve sclerosis. There is moderate to severe aortic valve stenosis with a peak velocity of 291.07 cm/s, mean gradient of 19 mmHg, and aortic valve area of 1.11 cm2. Pulmonic Valve The pulmonic valve is not well visualized. Mitral Valve The mitral valve has normal leaflets. There is trace mitral valve regurgitation. The mitral valve annulus is mildly calcified. Tricuspid Valve The tricuspid valve leaflets are normal. There is mild tricuspid valve regurgitation. Pericardium/Pleural The pericardium appears normal. Aorta The aortic root size at the sinus of Valsalva is normal. Left Ventricular Outflow Tract Name Value Normal LVOT 2D LVOT Diameter 2.02 cm LVOT Doppler LVOT Peak Gradient 4 mmHg LVOT Mean Gradient 3 mmHg LVOT VTI 20.41 cm LVOT VTI/AV VTI Ratio 0.35 LVOT Stroke Volume 65.06 ml LVOT CO 6.64 l/min LVOT CI 2.92 L/min/m2 Pulmonic Valve Name Value Normal RVOT Doppler RVOT Peak Gradient 2 mmHg
[2022-11-11] MEDS: HYDROcodone/acetaminophen (*CRX) 5-325 MG TABLET 1 TAB PO ×2 (11:08→18:09)
--- NOTE | 2022-11-11 11:39 | PC.NURSE ---
This patient, Jose Bhatti, was received from [facility] on 11/11/22 at 1139. Patient/family oriented to unit policies and routines
--- NOTE | 2022-11-11 14:13 | PM.IMPN ---
Progress Note: A&P Assessment and Plan (1) Anemia: Code(s): D64.9 - Anemia, unspecified Status: Acute Assessment and Plan: The patient has been type and crossmatch and given 2 units packed red blood cells. The patient is on Eliquis for DVTs the patient denies having any active bleeding. hb is 8 pt has outpatient colonoscopy booked (2) Pneumonia: Code(s): J18.9 - Pneumonia, unspecified organism Status: Acute Assessment and Plan: Azithromycin and Rocephin have been started. (3) UTI (urinary tract infection): Code(s): N39.0 - Urinary tract infection, site not specified Status: Acute Assessment and Plan: Rocephin ordered. Blood and urine cultures are pending (4) Hyponatremia: Code(s): E87.1 - Hypo-osmolality and hyponatremia Status: Acute Assessment and Plan: Watch bmp and sodium levels (5) Hyperlipidemia: Code(s): E78.5 - Hyperlipidemia, unspecified Status: Acute Assessment and Plan: The patient is intolerant of statins. Continue with [place] 3 (6) DVT (deep venous thrombosis): Code(s): I82.409 - Acute embolism and thrombosis of unspecified deep veins of unspecified lower extremity Status: Acute Assessment and Plan: Continue with Eliquis is the patient is not actively bleeding (7) Hypertension: Code(s): I10 - Essential (primary) hypertension Status: Acute Assessment and Plan: Continue with amlodipine, Avapro and bystolic (8) CHF (congestive heart failure): Code(s): I50.9 - Heart failure, unspecified Status: Acute Assessment and Plan: The patient has had most of his medical care at [facility] we will attempt to get his echo results from that hospital. Continue with iv Lasix lower dose watch sodium and potassium levels hopeful dc in 1-2 days time Subjective Date/time seen: 11/11/22 14:13 Interval history: 72-year-old male patient came to the emergency room for shortness of breath.? This has been occurring for least 2 weeks.? The patient also has some lower extremity edema.? He does have a history of congestive heart failure.? The patient was found have low O2 saturation was placed on oxygen at 2 L per nasal cannula.? Pt found to have pneumonia and fluid overload on CXR Pt being treated for pneumonia and CHF plan to wean off oxygen hopeful dc in 1-2 days iv lasix dose reduced due to low blood pressures continue diuresis for 1-2 more days Review of Systems Review of Systems: mild ankle edema breathing is better Exam Const: General: healthy appearing, comfortable, no acute distress, well developed, alert, awake, Physically active, average body habitus, well nourished and overweight Nutritional Appearance: average body habitus, well nourished and overweight Orientation/consciousness: oriented to person, oriented to place, oriented to time and patient oriented x3 Limitations: no limitations Other: Patient is awake and alert HENMT: Head: normal to inspection, No palpable skull fracture present, normocephalic and atraumatic Ears: hearing grossly normal bilaterally and external ears normal Face/Nose/Sinus: Normal external nose present and Normal nares present Eyes: General: appearance normal, both eyes and all related structures Alignment and Position: alignment normal Periorbital: periorbital findings normal Eyelids: eyelids normal Sclera: sclerae normal Pupils: Equal, round and reactive pupils present EOM: EOMs intact bilaterally Neck: Neck: normal visual inspection, full ROM, no lymphadenopathy, trachea midline and supple Chest: Chest palpation & inspection: normal inspection of the chest Resp: Effort & Inspection: normal respiratory effort Auscultation: clear to auscultation bilaterally Cardio: Palpation: normal PMI Rate: regular rate Rhythm: regular rhythm Heart sounds: S1 normal heart sound present and S2 normal heart
[2022-11-11] MEDS: AZITHROMYCIN 500 MG/NS 250 ML 500 MG/250 ML BAG 125 MG IVPB (14:30)
[2022-11-11] MEDS: POTASSIUM CHLORIDE 20 MEQ PACKET (FOR LIQUID) 40 MEQ PO (16:03)
[2022-11-11] MEDS: PERFLUTREN LIPID MICROSPHERES 1.5 ML VIAL DILUTED TO 10 ML TOTAL VOLUME IV PUSH (17:02)
--- NOTE | 2022-11-11 17:59 | IVDEFINITY ---
Prior to administration of IV Definity the patient was educated on the risks and benefits of the imaging enhancing agent including potential adverse side effects. The patient verbalized understanding. Allergies were verified. No exclusion criteria were identified and at least one of the following inclusion criteria were met: 1) physician request, 2) patient technically difficult to image (per the [place] [employer] guidelines of two or more segments not discernable within the apical view), or 3) questionable left ventricular function. ?
[2022-11-11] MEDS: DOCUSATE SODIUM 100 MG CAPSULE PO (19:46)
[2022-11-12] VITALS (18 sets, daily range): BP systolic 91–118; BP diastolic 52–60; PULSE 62–108; RESP 18–20; TEMP 36.1–36.7; O2SAT 91–98
[2022-11-12] MEDS: IPRATROPIUM BR 0.02% INH SOLN 0.5 MG/2.5 ML VIAL INHALATION ×4 (02:27→21:13)
[2022-11-12 05:53] LABS: Hematocrit 27.7 % (42.0-52.0); Hemoglobin 8.3 g/dL (14.0-18.0); Mean Corpuscular Hemoglobin 24.9 pg (26-34); Mean Corpuscular Volume 82.9 fl (80-100); Mean Platelet Volume 10.6 fl (7.4-10.4); Platelet Count Result 258 k/mm3 (150-375); Red Blood Count 3.34 M/mm3 (4.6-6.20); Red Cell Distribution Width 17.2 % (11.5-14.5); White Blood Count 7.3 K/mm3 (4.5-10.0)
[2022-11-12] MEDS: HYDROcodone/acetaminophen (*CRX) 5-325 MG TABLET 1 TAB PO ×3 (05:57→20:59)
[2022-11-12 06:05] LABS: Anion Gap 2 mmol/L (8-16); Blood Urea Nitrogen 18 mg/dL (9-20); Calcium 8.5 mg/dL (8.4-10.2); Carbon Dioxide 31 mmol/L (22-30); Chloride 93 mmol/L (98-107); Estimated CRCL calculation 85 ml/min; Estimated Glomerular Filt Rate > 60; Glucose 98 mg/dL (65-110); Potassium 4.1 mmol/L (3.4-5.0); Sodium 126 mmol/L (137-145)
--- NOTE | 2022-11-12 07:10 | PM.IMPN ---
Progress Note: A&P Assessment and Plan (1) Anemia: Code(s): D64.9 - Anemia, unspecified Status: Acute Assessment and Plan: Hgb 6.9 on admission, hgb today is 8.3 s/p 2 units of pRBC this admission Aspirin stopped at admission and eliquis on hold Needs GI follow up as an outpatient for EGD/colonoscopy (2) Pneumonia: Code(s): J18.9 - Pneumonia, unspecified organism Status: Acute Assessment and Plan: Azithromycin and Rocephin have been started. Can transition to Po abx. (3) UTI (urinary tract infection): Code(s): N39.0 - Urinary tract infection, site not specified Status: Acute Assessment and Plan: Rocephin ordered. Blood and urine cultures are pending. Less likely concerned for infection as no bacteria seen on U/A and WBCs may be from high presence of blood in urine. (4) Hyponatremia: Code(s): E87.1 - Hypo-osmolality and hyponatremia Status: Acute Assessment and Plan: Watch bmp and sodium levels (5) Hyperlipidemia: Code(s): E78.5 - Hyperlipidemia, unspecified Status: Acute Assessment and Plan: The patient is intolerant of statins. Continue with [place] 3 Added Ezetimibe 10 mg PO daily (6) DVT (deep venous thrombosis): Code(s): I82.409 - Acute embolism and thrombosis of unspecified deep veins of unspecified lower extremity Status: Acute Assessment and Plan: Enoxaparin 40 mg sub-cut daily while hospitalized. Cardiology is recommending outpatient follow up with his housing quality standard inspector for atrial appendage closure or resumption of AC depending on GI evaluation. He has an appointment for with Dr Jarrett. (7) Hypertension: Code(s): I10 - Essential (primary) hypertension Status: Acute Assessment and Plan: Continue with amlodipine, Avapro and bystolic -Cards increased bystolic from 2.5 mg to 5 mg for A-fib RVR. (8) CHF (congestive heart failure): Code(s): I50.9 - Heart failure, unspecified Status: Acute Assessment and Plan: Continue with IV lasix today and transition to PO tomorrow. ECHO done today Plan Anticipate IV lasix today and then transition to PO tomorrow. Hoping to discharge home tomorrow with GI and cardiology follow up's and PO antibiotics for PNA. Subjective Date/time seen: 11/12/22 07:10 Interval history: HPI obtained from chart: This a 72-year-old male patient came to the emergency room for shortness of breath.? This has been occurring for least 2 weeks.? The patient also has some lower extremity edema.? He does have a history of congestive heart failure.? The patient was found have low O2 saturation was placed on oxygen at 2 L per nasal cannula.? The patient does not typically wear oxygen at home the patient is anticoagulated san on Eliquis chronically.? He does have a history of atrial fibrillation.? The patient denied any chest pain or chest pressure he denies any dark stools.? His hemoglobin was noted to be 6.9 and hematocrit 23.7 but no prior labs for comparison.? Patient's MCV was within normal limits.? Sodium is 128 again no labs for comparison.? Troponin 0.181, 0.332, and 0.241.? BNp 3720.? The patient is positive for urinary tract infection. Interval history: 11/12: Mr Bhatti is doing well today. He feels like his swelling is slowly improving. He has +2 BLE pitting still. His shortness of breath is improved and he is no longer requiring oxygen. I'm anticipating another course of IV lasix today and then d/c in the morning. Patient is agreeable to this as well. Will place FIGUEROA wahl for further support. Review of Systems Review of Systems: All systems reviewed & are unremarkable except as noted in HPI and below Exam Narrative: General: well-nourished, well-appearing 72-year-old male, sitting up in bed, comfortable, NARD Neuro: awake, alert and oriented x4, speech clear, no focal neuro deficits noted HEENMT: normocephalic, atraum
[2022-11-12] MEDS: ALBUTEROL SULFATE NEB 2.5 MG/3 ML INH INHALATION ×3 (07:45→21:13)
--- NOTE | 2022-11-12 08:00 | PCRCNOTE ---
Patient refuses to use home cpap/ bipap unit or hospital unit at this time. Pt stated she brought patient's home unit back home.
[2022-11-12] MEDS: POTASSIUM CHLORIDE 20 MEQ ER TABLET PO ×2 (08:24→16:47)
[2022-11-12] MEDS: FERROUS SULFATE DRIED 142 MG TABCR PO (08:24)
[2022-11-12] MEDS: DOCUSATE SODIUM 100 MG CAPSULE PO ×2 (08:25→21:00)
[2022-11-12] MEDS: BENZONATATE 100 MG CAPSULE PO ×3 (08:25→16:47)
[2022-11-12] MEDS: ENOXAPARIN 40 MG/0.4 ML SYRINGE SUB-Q (08:25)
[2022-11-12] MEDS: guaiFENesin 12 HR 600 MG TABCR PO ×2 (08:26→20:58)
[2022-11-12] MEDS: EZETIMIBE 10 MG TABLET PO (08:26)
[2022-11-12] MEDS: FUROSEMIDE INJ 40 MG/4 ML VIAL 20 MG IV PUSH ×2 (08:26→16:47)
[2022-11-12] MEDS: IRBESARTAN 150 MG TABLET 300 MG PO (08:27)
[2022-11-12] MEDS: NEBIVOLOL HCL 5 MG TABLET PO (08:27)
[2022-11-12] MEDS: ISOSORBIDE MONONITRATE 30 MG TAB.ER.24H PO (08:27)
[2022-11-12] MEDS: hydroCHLOROthiazide 12.5 MG CAPSULE PO (08:27)
[2022-11-12] MEDS: OMEGA 3 POLYUNSAT FATTY ACIDS 1 GM CAP PO (08:28)
[2022-11-12] MEDS: rOPINIRole HCL 0.25 MG TABLET PO ×2 (08:28→21:00)
[2022-11-12] MEDS: PANTOPRAZOLE 40 MG TABLET PO (08:28)
--- NOTE | 2022-11-12 08:28 | PM.PNCARD ---
Progress Note: A&P Assessment and Plan (1) Acute on chronic diastolic CHF (congestive heart failure): Code(s): I50.33 - Acute on chronic diastolic (congestive) heart failure Status: Acute Assessment and Plan: Acute on chronic heart failure, presumably diastolic, aggravated by severe anemia. Improving but not at goal. --Echo pending --Continue Furosemide 20mg IV b.i.d. for today, perhaps shift to p.o. tomorrow --K+ 4.1 today --daily BMP --Cont irbesartan, BB --further recommendations to follow (Farxiga, spironolactone, etc?) (2) Elevated troponin: Code(s): R77.8 - Other specified abnormalities of plasma proteins Status: Acute Assessment and Plan: Mildly elevated troponins noted, with no anginal chest pain and no ischemic EKG changes. Nonischemic myocardial injury due to CHF, anemia, and AFib RVR. No further workup needed. (3) Persistent atrial fibrillation: Code(s): I48.19 - Other persistent atrial fibrillation Status: Acute Assessment and Plan: AFib, probably persistent, at times with RVR and heart rates in the 120s-130s. Aggravated by the patient's anemia and CHF. Improving with treatment of CHF and increasing the patient's nebivolol to 5 mg daily. --Eliquis was being continued due to lack of overt acute bleeding, but since his H&H has declined, has been discontinued for now. --Added p.r.n. IV Lopressor to control heart rate (4) Microcytic anemia: Code(s): D50.9 - Iron deficiency anemia, unspecified Status: Acute Assessment and Plan: Severe microcytic anemia. Status post 2 units of packed cells on admission. This apparently is his 3rd blood transfusion in the last 6 months. H&H declined today. PMD Dr. Garcia has recommended GI evaluation which the patient has been reluctant to pursue; patient is adamant he wants his boat builder, Dr. Jarrett, approve of a GI evaluation 1st. --continue Nexium --daily H&H --FOB pending --ASA DC'd on admission. --DC Eliquis since H&H declined. --FU w/ usual boat builder after discharge for consideration of a left atrial appendage occluder or resumption of AC depending on GI evaluation. Has an appointment with Dr. Jarrett on . -- recommended the patient call Dr. Garcia, get a referral for GI consultation and make an appointment to get the process started. (5) History of CAD (coronary artery disease): Code(s): Z86.79 - Personal history of other diseases of the circulatory system Status: Acute Assessment and Plan: Remote CABG, coronary stents since then, no anginal problems. --DC'd aspirin due to anemia --not on a statin; intolerant due to muscle cramps. --Added ezetamibe --follow-up with Dr. Jarrett for further treatment (6) Aortic valve disease: Code(s): I35.9 - Nonrheumatic aortic valve disorder, unspecified Status: Acute Assessment and Plan: Exam suggested degree of aortic stenosis and mitral regurgitation. Had an echo done in August and was told nothing to worry about. Repeat echo pending. (7) DVT (deep venous thrombosis): Code(s): I82.409 - Acute embolism and thrombosis of unspecified deep veins of unspecified lower extremity Status: Acute Assessment and Plan: Remote DVT ; not likely to be a problem at present due to pt taking Eliquis. --STarting lovenox for DVT prophylaxis. Subjective Date/time seen: 11/12/22 08:28 Interval history: Follow-up for patient acute on chronic ( diastolic? ) CHF, atrial fibrillation, possoible pneumonia. History of CAD CABG, and stents. The patient has had problems with anemia over the last few months and has had 2 prior blood transfusions, and also required 2 units of packed cells for a hematocrit of 24 this admission. Patient's usual boat builder is Dr. Jarrett at [facility]. Date of service 11/10/2022: Less short of breath, cough has improved, on 1 L nasal cannula. I's and O'
[2022-11-12] MEDS: AZITHROMYCIN 500 MG/NS 250 ML 500 MG/250 ML BAG 250 MG IVPB (14:47)
[2022-11-12] MEDS: AMOXICILLIN/CLAVULANATE K 875-125 MG TAB 1 TABLET PO (20:58)
[2022-11-13] VITALS (24 sets, daily range): BP systolic 102–118; BP diastolic 52–59; PULSE 74–97; RESP 17–20; TEMP 36.5–36.8; O2SAT 92–100
[2022-11-13] MEDS: ALBUTEROL SULFATE NEB 2.5 MG/3 ML INH INHALATION ×5 (02:58→20:09)
[2022-11-13] MEDS: IPRATROPIUM BR 0.02% INH SOLN 0.5 MG/2.5 ML VIAL INHALATION ×4 (03:00→20:09)
[2022-11-13 05:32] LABS: Hematocrit 27.8 % (42.0-52.0); Hemoglobin 8.2 g/dL (14.0-18.0); Mean Corpuscular HGB Conc 29.5 g/dl (32-36); Mean Corpuscular Hemoglobin 24.8 pg (26-34); Mean Platelet Volume 10.3 fl (7.4-10.4); Platelet Count Result 231 k/mm3 (150-375); Red Blood Count 3.31 M/mm3 (4.6-6.20); Red Cell Distribution Width 17.3 % (11.5-14.5); White Blood Count 5.1 K/mm3 (4.5-10.0)
[2022-11-13 06:02] LABS: Procalcitonin 0.1 ng/mL
[2022-11-13 06:04] LABS: Alanine Aminotransferase 20 U/L (6-50); Albumin Level 3.4 g/dL (3.5-5.1); Alkaline Phosphatase 83 U/L (38-126); Anion Gap 3 mmol/L (8-16); Aspartate Amino Transferase 28 U/L (17-59); Bilirubin,Total 0.6 mg/dL (0.2-1.3); Blood Urea Nitrogen 17 mg/dL (9-20); Calcium 8.5 mg/dL (8.4-10.2); Carbon Dioxide 30 mmol/L (22-30); Chloride 93 mmol/L (98-107); Estimated CRCL calculation 84 ml/min; Estimated Glomerular Filt Rate > 60; Glucose 97 mg/dL (65-110); Potassium 4.3 mmol/L (3.4-5.0); Sodium 126 mmol/L (137-145)
--- NOTE | 2022-11-13 06:40 | PM.IMPN ---
Progress Note: A&P Assessment and Plan (1) Anemia: Code(s): D64.9 - Anemia, unspecified Status: Acute Assessment and Plan: Hgb 6.9 on admission, hgb today is 8.3 s/p 2 units of pRBC this admission Aspirin stopped at admission and eliquis on hold Needs GI follow up as an outpatient for EGD/colonoscopy. Patient has been reluctant to undergo GI scope without clearance from his wrapper and preserver, Dr Jarrett. He has a follow up scheduled for this November 18. Per cardiology note, Eliquis can remain on hold until this appointment at which discussion for atrial appendage vs reinitiation of Eliquis can be discussed. (2) Pneumonia: Code(s): J18.9 - Pneumonia, unspecified organism Status: Acute Assessment and Plan: Initially transitioned to PO Augmentin and Azithromycin but patient is concerned that he has a PCN allergy. He cannot recall what the medication was and is not sure he isn't confusing the clindamycin with a PCN. Will d/c both and just transition to levaquin for 3 more days. -QTc 458 -normal renal function (3) UTI (urinary tract infection): Code(s): N39.0 - Urinary tract infection, site not specified Status: Acute Assessment and Plan: Rocephin ordered. Blood and urine cultures are pending. Less likely concerned for infection as no bacteria seen on U/A and WBCs may be from high presence of blood in urine. (4) Hyponatremia: Code(s): E87.1 - Hypo-osmolality and hyponatremia Status: Acute Assessment and Plan: Watch bmp and sodium levels (5) Hyperlipidemia: Code(s): E78.5 - Hyperlipidemia, unspecified Status: Acute Assessment and Plan: The patient is intolerant of statins. Continue with [place] 3 Added Ezetimibe 10 mg PO daily (6) DVT (deep venous thrombosis): Code(s): I82.409 - Acute embolism and thrombosis of unspecified deep veins of unspecified lower extremity Status: Acute Assessment and Plan: Enoxaparin 40 mg sub-cut daily while hospitalized. Cardiology is recommending outpatient follow up with his wrapper and preserver for atrial appendage closure or resumption of AC depending on GI evaluation. He has an appointment for with Dr Jarrett. (7) Hypertension: Code(s): I10 - Essential (primary) hypertension Status: Acute Assessment and Plan: Continue with amlodipine, Avapro and bystolic -Cards increased bystolic from 2.5 mg to 5 mg for A-fib RVR. (8) CHF (congestive heart failure): Code(s): I50.9 - Heart failure, unspecified Status: Acute Assessment and Plan: Was planning on transitioning to PO antibiotics given how he looks clinically, however chest x-ray is worse than when he presented and is concerning for increased pulmonary edema. Will give Lasix 40 mg IVP BID today and re-assess in the morning. Ordering BNP as well. On admission, BNP was 3000. ECHO from 11/11: Summary ? 1. Technically somewhat challenging exam. ? 2. Modest left ventricular enlargement with good systolic function. ? 3. Severe biatrial dilation. ? 4. Aortic valve stenosis valve area 1.1 cm2. ? 5. Trivial mitral and tricuspid valve regurgitation. ? 6. Atrial fibrillation. Plan IV lasix increased BNP repeat ordered Repeat chest XR tomorrow Subjective Date/time seen: 11/13/22 06:40 Interval history: HPI obtained from chart: This a 72-year-old male patient came to the emergency room for shortness of breath.? This has been occurring for least 2 weeks.? The patient also has some lower extremity edema.? He does have a history of congestive heart failure.? The patient was found have low O2 saturation was placed on oxygen at 2 L per nasal cannula.? The patient does not typically wear oxygen at home the patient is anticoagulated san on Eliquis chronically.? He does have a history of atrial fibrillation.? The patient denied any chest pain or chest pressure he denies any dark stools.? His hemog
--- NOTE | 2022-11-13 06:55 | PM.DS ---
DS: Admitting Diagnosis Discharge Date TuesdayNovember 13 Admitting Diagnosis CHF exacerbation and pneumonia DS: Discharge Diagnosis Discharge Diagnosis (1) Anemia: Code(s): D64.9 - Anemia, unspecified Status: Acute Assessment and Plan: Hgb 6.9 on admission, hgb today is 8.3 s/p 2 units of pRBC this admission Aspirin stopped at admission and eliquis on hold Needs GI follow up as an outpatient for EGD/colonoscopy. Patient has been reluctant to undergo GI scope without clearance from his curtain inspector, Dr Jarrett. He has a follow up scheduled for this November 18. Per cardiology note, Eliquis can remain on hold until this appointment at which discussion for atrial appendage vs reinitiation of Eliquis can be discussed. (2) Pneumonia: Code(s): J18.9 - Pneumonia, unspecified organism Status: Acute Assessment and Plan: Azithromycin and Rocephin have been started. Can transition to Po abx. (3) UTI (urinary tract infection): Code(s): N39.0 - Urinary tract infection, site not specified Status: Acute Assessment and Plan: Rocephin ordered. Blood and urine cultures are pending. Less likely concerned for infection as no bacteria seen on U/A and WBCs may be from high presence of blood in urine. (4) Hyponatremia: Code(s): E87.1 - Hypo-osmolality and hyponatremia Status: Acute Assessment and Plan: Watch bmp and sodium levels (5) Hyperlipidemia: Code(s): E78.5 - Hyperlipidemia, unspecified Status: Acute Assessment and Plan: The patient is intolerant of statins. Continue with [place] 3 Added Ezetimibe 10 mg PO daily (6) DVT (deep venous thrombosis): Code(s): I82.409 - Acute embolism and thrombosis of unspecified deep veins of unspecified lower extremity Status: Acute Assessment and Plan: Enoxaparin 40 mg sub-cut daily while hospitalized. Cardiology is recommending outpatient follow up with his curtain inspector for atrial appendage closure or resumption of AC depending on GI evaluation. He has an appointment for with Dr Jarrett. (7) Hypertension: Code(s): I10 - Essential (primary) hypertension Status: Acute Assessment and Plan: Continue with amlodipine, Avapro and bystolic -Cards increased bystolic from 2.5 mg to 5 mg for A-fib RVR. (8) CHF (congestive heart failure): Code(s): I50.9 - Heart failure, unspecified Status: Acute Assessment and Plan: Continue with IV lasix today and transition to PO tomorrow. ECHO done today Plan Anticipate IV lasix today and then transition to PO tomorrow. Hoping to discharge home tomorrow with GI and cardiology follow up's and PO antibiotics for PNA. DS: Summary Hospital Course Hospital Course: HPI obtained from chart: This a 72-year-old male patient came to the emergency room for shortness of breath.? This has been occurring for least 2 weeks.? The patient also has some lower extremity edema.? He does have a history of congestive heart failure.? The patient was found have low O2 saturation was placed on oxygen at 2 L per nasal cannula.? The patient does not typically wear oxygen at home the patient is anticoagulated san on Eliquis chronically.? He does have a history of atrial fibrillation.? The patient denied any chest pain or chest pressure he denies any dark stools.? His hemoglobin was noted to be 6.9 and hematocrit 23.7 but no prior labs for comparison.? Patient's MCV was within normal limits.? Sodium is 128 again no labs for comparison.? Troponin 0.181, 0.332, and 0.241.? BNp 3720.? The patient is positive for urinary tract infection. Interval history: 11/12: Mr Bhatit is doing well today. He feels like his swelling is slowly improving. He has +2 BLE pitting still. His shortness of breath is improved and he is no longer requiring oxygen. I'm anticipating another course of IV lasix today and then d/c in the morning. Patient is
[2022-11-13] MEDS: POTASSIUM CHLORIDE 20 MEQ ER TABLET PO ×2 (08:23→17:10)
[2022-11-13] MEDS: FERROUS SULFATE DRIED 142 MG TABCR PO (08:23)
[2022-11-13] MEDS: AZITHROMYCIN 250 MG TABLET 500 MG PO (08:25)
[2022-11-13] MEDS: DOCUSATE SODIUM 100 MG CAPSULE PO ×2 (08:25→20:31)
[2022-11-13] MEDS: BENZONATATE 100 MG CAPSULE PO ×3 (08:25→17:05)
[2022-11-13] MEDS: ENOXAPARIN 40 MG/0.4 ML SYRINGE SUB-Q (08:26)
[2022-11-13] MEDS: EZETIMIBE 10 MG TABLET PO (08:26)
[2022-11-13] MEDS: guaiFENesin 12 HR 600 MG TABCR PO ×2 (08:26→20:31)
[2022-11-13] MEDS: FUROSEMIDE 20 MG TABLET PO (08:26)
[2022-11-13] MEDS: ISOSORBIDE MONONITRATE 30 MG TAB.ER.24H PO (08:27)
[2022-11-13] MEDS: hydroCHLOROthiazide 12.5 MG CAPSULE PO (08:27)
[2022-11-13] MEDS: IRBESARTAN 150 MG TABLET 300 MG PO (08:27)
[2022-11-13] MEDS: NEBIVOLOL HCL 5 MG TABLET PO (08:27)
[2022-11-13] MEDS: OMEGA 3 POLYUNSAT FATTY ACIDS 1 GM CAP PO (08:28)
[2022-11-13] MEDS: PANTOPRAZOLE 40 MG TABLET PO (08:28)
[2022-11-13] MEDS: rOPINIRole HCL 0.25 MG TABLET PO ×2 (08:28→20:31)
[2022-11-13 12:03] LABS: NT Pro B Type Natriuretic Pept 2480 pg/mL (19.9-100)
[2022-11-13] MEDS: FUROSEMIDE INJ 40 MG/4 ML VIAL IV PUSH ×2 (12:30→17:06)
[2022-11-13] MEDS: levoFLOXacin 500 MG TABLET PO (13:02)
[2022-11-13] MEDS: HYDROcodone/acetaminophen (*CRX) 5-325 MG TABLET 1 TAB PO (20:30)
[2022-11-14] VITALS (21 sets, daily range): BP systolic 96–111; BP diastolic 52–60; PULSE 71–96; RESP 14–18; TEMP 36.4–36.5; O2SAT 92–100
[2022-11-14] MEDS: IPRATROPIUM BR 0.02% INH SOLN 0.5 MG/2.5 ML VIAL INHALATION ×4 (02:20→19:14)
[2022-11-14] MEDS: ALBUTEROL SULFATE NEB 2.5 MG/3 ML INH INHALATION ×4 (02:21→19:14)
[2022-11-14 04:59] LABS: Basophils Absolute Auto 0.1 K/mm3 (0.0-0.1); Basophils Percent Auto 1.1 % (0.2-1.2); Eosinophils Absolute Auto 0.8 K/mm3 (0-0.3); Eosinophils Percent Auto 14.7 % (0-4.4); Hematocrit 27.3 % (42.0-52.0); Hemoglobin 8.2 g/dL (14.0-18.0); Immature Granulocyte Absolute 0.02 K/mm3 (0.00-0.031); Immature Granulocyte Percent A 0.4 % (0-0.5); Lymphocytes Absolute Auto 0.51 K/mm3 (0.9-3.2); Lymphocytes Percent Auto 9.3 % (18.3-44.2); Mean Corpuscular Hemoglobin 24.9 pg (26-34); Mean Platelet Volume 10.5 fl (7.4-10.4); Monocytes Absolute Auto 0.8 K/mm3 (0.1-0.6); Monocytes Percent Auto 14.8 % (2.6-8.5); Neutrophils Absolute Auto 3.3 K/mm3 (1.3-6.7); Neutrophils Percent Auto 59.7 % (45.5-73.1); Platelet Count Result 232 k/mm3 (150-375); Red Blood Count 3.29 M/mm3 (4.6-6.20); Red Cell Distribution Width 17.2 % (11.5-14.5); White Blood Count 5.5 K/mm3 (4.5-10.0)
[2022-11-14 05:09] LABS: Anion Gap 6 mmol/L (8-16); Blood Urea Nitrogen 17 mg/dL (9-20); Carbon Dioxide 29 mmol/L (22-30); Chloride 94 mmol/L (98-107); Estimated CRCL calculation 84 ml/min; Estimated Glomerular Filt Rate > 60; Glucose 99 mg/dL (65-110); Sodium 129 mmol/L (137-145)
--- NOTE | 2022-11-14 06:13 | PM.IMPN ---
Progress Note: A&P Assessment and Plan (1) Anemia: Code(s): D64.9 - Anemia, unspecified Status: Acute Assessment and Plan: Hgb 6.9 on admission, hgb today is 8.3 s/p 2 units of pRBC this admission Aspirin stopped at admission and eliquis on hold Needs GI follow up as an outpatient for EGD/colonoscopy. Patient has been reluctant to undergo GI scope without clearance from his cryptographic technician, Dr Jarrett. He has a follow up scheduled for this November 18. Per cardiology note, Eliquis can remain on hold until this appointment at which discussion for atrial appendage vs reinitiation of Eliquis can be discussed. (2) Pneumonia: Code(s): J18.9 - Pneumonia, unspecified organism Status: Acute Assessment and Plan: Initially transitioned to PO Augmentin and Azithromycin but patient is concerned that he has a PCN allergy. He cannot recall what the medication was and is not sure he isn't confusing the clindamycin with a PCN. Will d/c both and just transition to levaquin for 3 more days. -QTc 458 -normal renal function (3) Hyponatremia: Code(s): E87.1 - Hypo-osmolality and hyponatremia Status: Acute Assessment and Plan: Watch bmp and sodium levels (4) Hyperlipidemia: Code(s): E78.5 - Hyperlipidemia, unspecified Status: Acute Assessment and Plan: The patient is intolerant of statins. Continue with [place] 3 Added Ezetimibe 10 mg PO daily (5) DVT (deep venous thrombosis): Code(s): I82.409 - Acute embolism and thrombosis of unspecified deep veins of unspecified lower extremity Status: Acute Assessment and Plan: Enoxaparin 40 mg sub-cut daily while hospitalized. Cardiology is recommending outpatient follow up with his cryptographic technician for atrial appendage closure or resumption of AC depending on GI evaluation. He has an appointment for with Dr Jarrett. (6) Hypertension: Code(s): I10 - Essential (primary) hypertension Status: Acute Assessment and Plan: Continue with amlodipine, Avapro and bystolic -Cards increased bystolic from 2.5 mg to 5 mg for A-fib RVR. (7) CHF (congestive heart failure): Code(s): I50.9 - Heart failure, unspecified Status: Acute Assessment and Plan: Was planning on transitioning to PO lasix given how he looks clinically, however chest x-ray is worse than when he presented and is concerning for increased pulmonary edema. Will give Lasix 40 mg IVP BID today and re-assess in the morning. Ordering BNP as well. On admission, BNP was 3000. ECHO from 11/11: Summary ? 1. Technically somewhat challenging exam. ? 2. Modest left ventricular enlargement with good systolic function. ? 3. Severe biatrial dilation. ? 4. Aortic valve stenosis valve area 1.1 cm2. ? 5. Trivial mitral and tricuspid valve regurgitation. ? 6. Atrial fibrillation. Plan Chest x-ray shows some improvement in pulmonary edema. Will increase lasix dosing to TID. Potentially he could discharge home tomorrow. Subjective Date/time seen: 11/14/22 06:13 Interval history: HPI obtained from chart: This a 72-year-old male patient came to the emergency room for shortness of breath.? This has been occurring for least 2 weeks.? The patient also has some lower extremity edema.? He does have a history of congestive heart failure.? The patient was found have low O2 saturation was placed on oxygen at 2 L per nasal cannula.? The patient does not typically wear oxygen at home the patient is anticoagulated san on Eliquis chronically.? He does have a history of atrial fibrillation.? The patient denied any chest pain or chest pressure he denies any dark stools.? His hemoglobin was noted to be 6.9 and hematocrit 23.7 but no prior labs for comparison.? Patient's MCV was within normal limits.? Sodium is 128 again no labs for comparison.? Troponin 0.181, 0.332, and 0.241.? BNp 3720.? The patient is positive for urinary tract infection.
[2022-11-14] MEDS: POTASSIUM CHLORIDE 20 MEQ ER TABLET PO ×2 (08:45→17:40)
[2022-11-14] MEDS: FERROUS SULFATE DRIED 142 MG TABCR PO (08:45)
[2022-11-14] MEDS: EZETIMIBE 10 MG TABLET PO (08:46)
[2022-11-14] MEDS: ENOXAPARIN 40 MG/0.4 ML SYRINGE SUB-Q (08:46)
[2022-11-14] MEDS: BENZONATATE 100 MG CAPSULE PO ×3 (08:46→17:40)
[2022-11-14] MEDS: DOCUSATE SODIUM 100 MG CAPSULE PO ×2 (08:46→20:45)
[2022-11-14] MEDS: ISOSORBIDE MONONITRATE 30 MG TAB.ER.24H PO (08:47)
[2022-11-14] MEDS: IRBESARTAN 150 MG TABLET 300 MG PO (08:47)
[2022-11-14] MEDS: guaiFENesin 12 HR 600 MG TABCR PO ×2 (08:47→20:44)
[2022-11-14] MEDS: FUROSEMIDE INJ 40 MG/4 ML VIAL IV PUSH ×2 (08:47→17:40)
[2022-11-14] MEDS: hydroCHLOROthiazide 12.5 MG CAPSULE PO (08:47)
[2022-11-14] MEDS: levoFLOXacin 500 MG TABLET PO (08:48)
[2022-11-14] MEDS: OMEGA 3 POLYUNSAT FATTY ACIDS 1 GM CAP PO (08:48)
[2022-11-14] MEDS: NEBIVOLOL HCL 5 MG TABLET PO (08:48)
[2022-11-14] MEDS: PANTOPRAZOLE 40 MG TABLET PO (08:49)
[2022-11-14] MEDS: rOPINIRole HCL 0.25 MG TABLET PO ×2 (08:49→20:44)
[2022-11-14 11:46] LABS: IFOB Positive Control Positive; Immunochemical Fecal Occult Bl Positive (N)
[2022-11-14] MEDS: ACETAMINOPHEN 325 MG TABLET 650 MG PO (12:15)
[2022-11-14] MEDS: HYDROcodone/acetaminophen (*CRX) 5-325 MG TABLET 1 TAB PO (20:44)
[2022-11-15] VITALS (14 sets, daily range): BP systolic 101–112; BP diastolic 54–56; PULSE 65–115; RESP 14–18; TEMP 36.5; O2SAT 96–98
[2022-11-15] MEDS: IPRATROPIUM BR 0.02% INH SOLN 0.5 MG/2.5 ML VIAL INHALATION ×3 (02:32→13:22)
[2022-11-15] MEDS: ALBUTEROL SULFATE NEB 2.5 MG/3 ML INH INHALATION ×3 (02:32→13:22)
[2022-11-15 05:58] LABS: Basophils Percent Auto 0.9 % (0.2-1.2); Eosinophils Absolute Auto 0.8 K/mm3 (0-0.3); Eosinophils Percent Auto 17.3 % (0-4.4); Hematocrit 26.9 % (42.0-52.0); Immature Granulocyte Absolute 0.01 K/mm3 (0.00-0.031); Immature Granulocyte Percent A 0.2 % (0-0.5); Lymphocytes Absolute Auto 0.51 K/mm3 (0.9-3.2); Lymphocytes Percent Auto 11.3 % (18.3-44.2); Mean Corpuscular HGB Conc 29.7 g/dl (32-36); Mean Corpuscular Hemoglobin 24.5 pg (26-34); Mean Corpuscular Volume 82.5 fl (80-100); Mean Platelet Volume 10.6 fl (7.4-10.4); Monocytes Absolute Auto 0.7 K/mm3 (0.1-0.6); Monocytes Percent Auto 14.7 % (2.6-8.5); Neutrophils Absolute Auto 2.5 K/mm3 (1.3-6.7); Neutrophils Percent Auto 55.6 % (45.5-73.1); Platelet Count Result 234 k/mm3 (150-375); Red Blood Count 3.26 M/mm3 (4.6-6.20); Red Cell Distribution Width 17.2 % (11.5-14.5); White Blood Count 4.5 K/mm3 (4.5-10.0)
[2022-11-15 06:15] LABS: Anion Gap 5 mmol/L (8-16); Blood Urea Nitrogen 14 mg/dL (9-20); Carbon Dioxide 29 mmol/L (22-30); Chloride 95 mmol/L (98-107); Estimated CRCL calculation 84 ml/min; Estimated Glomerular Filt Rate > 60; Glucose 100 mg/dL (65-110); Potassium 3.7 mmol/L (3.4-5.0); Sodium 129 mmol/L (137-145)
[2022-11-15 06:19] LABS: NT Pro B Type Natriuretic Pept 2430 pg/mL (19.9-100)
[2022-11-15 06:45] LABS: Platelet Estimate Adequate (Adequate)
[2022-11-15 06:46] LABS: Acanthocytes 1+ (NORMAL); Hypochromasia 1+ (NORMAL); Ovalocytes 1+ (NORMAL); Schistocytes Rare (NORMAL)
--- NOTE | 2022-11-15 07:08 | PM.IMPN ---
Progress Note: A&P Assessment and Plan (1) Anemia: Code(s): D64.9 - Anemia, unspecified Status: Acute Assessment and Plan: Hgb 6.9 on admission, hgb today is 8.0 s/p 2 units of pRBC this admission Aspirin stopped at admission and eliquis on hold Needs GI follow up as an outpatient for EGD/colonoscopy. Patient has been reluctant to undergo GI scope without clearance from his pull out operator, Dr Jarrett. He has a follow up scheduled for this November 18. Per cardiology note, Eliquis can remain on hold until this appointment at which discussion for atrial appendage vs reinitiation of Eliquis can be discussed. 11/14 Occult blood positive. Will see if GI recommends scope this admission or if he can continue with his plan for outpatient. (2) Pneumonia: Code(s): J18.9 - Pneumonia, unspecified organism Status: Acute Assessment and Plan: Azithromycin and Rocephin have been started. Can transition to Po Levaquin. (3) Hyponatremia: Code(s): E87.1 - Hypo-osmolality and hyponatremia Status: Acute Assessment and Plan: Watch bmp and sodium levels (4) Hyperlipidemia: Code(s): E78.5 - Hyperlipidemia, unspecified Status: Acute Assessment and Plan: The patient is intolerant of statins. Continue with [place] 3 Added Ezetimibe 10 mg PO daily (5) DVT (deep venous thrombosis): Code(s): I82.409 - Acute embolism and thrombosis of unspecified deep veins of unspecified lower extremity Status: Acute Assessment and Plan: Enoxaparin 40 mg sub-cut daily while hospitalized. Cardiology is recommending outpatient follow up with his pull out operator for atrial appendage closure or resumption of AC depending on GI evaluation. He has an appointment for with Dr Jarrett. (6) Hypertension: Code(s): I10 - Essential (primary) hypertension Status: Acute Assessment and Plan: Continue with amlodipine, Avapro and bystolic -Cards increased bystolic from 2.5 mg to 5 mg for A-fib RVR. (7) CHF (congestive heart failure): Code(s): I50.9 - Heart failure, unspecified Status: Acute Assessment and Plan: Continue with IV lasix today and transition to PO tomorrow. ECHO done today Plan Anticipate IV lasix today and then transition to PO tomorrow. Hoping to discharge home tomorrow with GI and cardiology follow up's and PO antibiotics for PNA. Subjective Date/time seen: 11/15/22 07:08 Interval history: HPI obtained from chart: This a 72-year-old male patient came to the emergency room for shortness of breath.? This has been occurring for least 2 weeks.? The patient also has some lower extremity edema.? He does have a history of congestive heart failure.? The patient was found have low O2 saturation was placed on oxygen at 2 L per nasal cannula.? The patient does not typically wear oxygen at home the patient is anticoagulated san on Eliquis chronically.? He does have a history of atrial fibrillation.? The patient denied any chest pain or chest pressure he denies any dark stools.? His hemoglobin was noted to be 6.9 and hematocrit 23.7 but no prior labs for comparison.? Patient's MCV was within normal limits.? Sodium is 128 again no labs for comparison.? Troponin 0.181, 0.332, and 0.241.? BNp 3720.? The patient is positive for urinary tract infection. Interval history: 11/12: Mr Bhatti is doing well today. He feels like his swelling is slowly improving. He has +2 BLE pitting still. His shortness of breath is improved and he is no longer requiring oxygen. I'm anticipating another course of IV lasix today and then d/c in the morning. Patient is agreeable to this as well. Will place FIGUEROA wahl for further support. 11/13: Will repeat chest x-ray today to assess resolution of pulmonary edema. Unfortunately imaging looks worse than when he initially presented despite improvement clinically. He denies chest pain, shortness of breath, and has
[2022-11-15] MEDS: hydroCHLOROthiazide 12.5 MG CAPSULE PO (09:19)
[2022-11-15] MEDS: rOPINIRole HCL 0.25 MG TABLET PO (09:19)
[2022-11-15] MEDS: levoFLOXacin 500 MG TABLET PO (09:19)
[2022-11-15] MEDS: OMEGA 3 POLYUNSAT FATTY ACIDS 1 GM CAP PO (09:19)
[2022-11-15] MEDS: IRBESARTAN 150 MG TABLET 300 MG PO (09:20)
[2022-11-15] MEDS: NEBIVOLOL HCL 5 MG TABLET PO (09:20)
[2022-11-15] MEDS: POTASSIUM CHLORIDE 20 MEQ ER TABLET PO (09:20)
[2022-11-15] MEDS: DOCUSATE SODIUM 100 MG CAPSULE PO (09:20)
[2022-11-15] MEDS: PANTOPRAZOLE 40 MG TABLET PO (09:21)
[2022-11-15] MEDS: guaiFENesin 12 HR 600 MG TABCR PO (09:21)
[2022-11-15] MEDS: ISOSORBIDE MONONITRATE 30 MG TAB.ER.24H PO (09:21)
[2022-11-15] MEDS: BENZONATATE 100 MG CAPSULE PO ×2 (09:21→12:17)
[2022-11-15] MEDS: EZETIMIBE 10 MG TABLET PO (09:21)
[2022-11-15] MEDS: FERROUS SULFATE DRIED 142 MG TABCR PO (09:21)
[2022-11-15] MEDS: FUROSEMIDE INJ 40 MG/4 ML VIAL IV PUSH (09:28)
[2022-11-15] MEDS: ENOXAPARIN 40 MG/0.4 ML SYRINGE SUB-Q (09:36)
[2022-11-15] MEDS: HYDROcodone/acetaminophen (*CRX) 5-325 MG TABLET 1 TAB PO (11:03)
--- NOTE | 2022-11-15 14:42 | PC.NURSE ---
Nursing notes and assessments by Jaylin Arellano/certified nursing assistant instructor/[facility] reviewed. Agree with assessments. All medications passed under directed supervision of this tech writer. Patient has been discharged home at this time in stable condition.
--- NOTE | 2022-11-16 15:45 | PM.DS ---
DS: Admitting Diagnosis Discharge Date 11/14/22 Admitting Diagnosis chf/pneumonia DS: Discharge Diagnosis Discharge Diagnosis (1) Anemia: Code(s): D64.9 - Anemia, unspecified Status: Acute Assessment and Plan: Hgb 6.9 on admission, hgb today is 8.3 s/p 2 units of pRBC this admission Aspirin stopped at admission and eliquis on hold Needs GI follow up as an outpatient for EGD/colonoscopy. Patient has been reluctant to undergo GI scope without clearance from his custodial maintenance worker, Dr Jarrett. He has a follow up scheduled for this November 18. Per cardiology note, Eliquis can remain on hold until this appointment at which discussion for atrial appendage vs reinitiation of Eliquis can be discussed. (2) Pneumonia: Code(s): J18.9 - Pneumonia, unspecified organism Status: Acute Assessment and Plan: Azithromycin and Rocephin have been started. Can transition to Po abx. (3) UTI (urinary tract infection): Code(s): N39.0 - Urinary tract infection, site not specified Status: Acute Assessment and Plan: Rocephin ordered. Blood and urine cultures are pending. Less likely concerned for infection as no bacteria seen on U/A and WBCs may be from high presence of blood in urine. (4) Hyponatremia: Code(s): E87.1 - Hypo-osmolality and hyponatremia Status: Acute Assessment and Plan: Watch bmp and sodium levels (5) Hyperlipidemia: Code(s): E78.5 - Hyperlipidemia, unspecified Status: Acute Assessment and Plan: The patient is intolerant of statins. Continue with [place] 3 Added Ezetimibe 10 mg PO daily (6) DVT (deep venous thrombosis): Code(s): I82.409 - Acute embolism and thrombosis of unspecified deep veins of unspecified lower extremity Status: Acute Assessment and Plan: Enoxaparin 40 mg sub-cut daily while hospitalized. Cardiology is recommending outpatient follow up with his custodial maintenance worker for atrial appendage closure or resumption of AC depending on GI evaluation. He has an appointment for with Dr Jarrett. (7) Hypertension: Code(s): I10 - Essential (primary) hypertension Status: Acute Assessment and Plan: Continue with amlodipine, Avapro and bystolic -Cards increased bystolic from 2.5 mg to 5 mg for A-fib RVR. (8) CHF (congestive heart failure): Code(s): I50.9 - Heart failure, unspecified Status: Acute Assessment and Plan: Continue with IV lasix today and transition to PO tomorrow. ECHO done today Plan Anticipate IV lasix today and then transition to PO tomorrow. Hoping to discharge home tomorrow with GI and cardiology follow up's and PO antibiotics for PNA. DS: Summary Hospital Course Hospital Course: This a 72-year-old male patient came to the emergency room for shortness of breath.? This has been occurring for least 2 weeks.? The patient also has some lower extremity edema.? He does have a history of congestive heart failure.? The patient was found have low O2 saturation was placed on oxygen at 2 L per nasal cannula.? The patient does not typically wear oxygen at home the patient is anticoagulated san on Eliquis chronically.? He does have a history of atrial fibrillation.? The patient denied any chest pain or chest pressure he denies any dark stools.? His hemoglobin was noted to be 6.9 and hematocrit 23.7 but no prior labs for comparison.? Patient's MCV was within normal limits.? Sodium is 128 again no labs for comparison.? Troponin 0.181, 0.332, and 0.241.? BNp 3720.? The patient is positive for urinary tract infection. Interval history: 11/12: Mr Bhatti is doing well today. He feels like his swelling is slowly improving. He has +2 BLE pitting still. His shortness of breath is improved and he is no longer requiring oxygen. I'm anticipating another course of IV lasix today and then d/c in the morning. Patient is agreeable to this as well. Will place FIGUEROA wahl for martín
== END 2022-11-15 14:30 | disposition home or self-care (01) | DRG 291 ==
LOC: ANHED 14:10 → ANHIMU 15:55 → ANH2MED 11-11 11:13
PROVIDERS: Family Medicine; Internal Medicine Cardiovascular Disease; Nurse Practitioner; Admitting Provider Internal Medicine; Emergency Provider Emergency Medicine; Visit Provider Nurse Practitioner Acute Care
DX: I11.0 Hypertensive heart disease with heart failure (principal); I50.33 Acute on chronic diastolic (congestive) heart failure; J18.9 Pneumonia, unspecified organism; I48.19 Other persistent atrial fibrillation; N39.0 Urinary tract infection, site not specified; E87.1 Hypo-osmolality and hyponatremia; I35.0 Nonrheumatic aortic (valve) stenosis; I34.0 Nonrheumatic mitral (valve) insufficiency; E78.5 Hyperlipidemia, unspecified; D50.9 Iron deficiency anemia, unspecified; K21.9 Gastro-esophageal reflux disease without esophagitis; Z20.822 Contact with and (suspected) exposure to COVID-19; Z79.82 Long term (current) use of aspirin; Z79.01 Long term (current) use of anticoagulants; Z86.718 Personal history of other venous thrombosis and embolism
CPT/HCPCS: 36415; 36430; 71045; 71046; 80048; 80053; 81001; 82274; 83605; 83735; 83880; 84145; 84443; 84484; 85014; 85018; 85025; 85027; 85610; 85730; 86850; 86900; 86901; 86923; 87040; 87086; 87635; 93005; 94640; 96361; 96365; 96366; 96367; 96375; 96376; 99285; A9270; C8929; G0378; J0456; J0696; J1650; J1940; J7050; P9016; Q9957

== ENCOUNTER 2022-12-07 04:14 | Day surgery (SDC) | payer MEDICARE, SELFPAY ==
[2022-11-29 09:19] VITALS: BMI 30.8
--- NOTE | 2022-11-30 14:19 | PC.NURSE ---
Spoke with patient today to inquire about his eliquis, pt states that he restarted it on 12/18/2022, he states Dr. Jarrett wanted his to restart it, I called Dr. Alas office and left message for his nurse. She returned call and Dr. Jarrett wanted pt to hold his ASA AND ELIQUIS until he is cleared after EGD/COLON and Dr. Arellano feels it is safe for him to go back on Eliquis. She will call patient and discuss with him.
[2022-12-07 09:54] VITALS: BP 143/68; PULSE 76; RESP 18; TEMP 36.8; O2SAT 97
[2022-12-07] MEDS: LACTATED RINGERS 1,000 ML 150 ML IV CONT (10:02)
--- NOTE | 2022-12-07 10:38 | PM.HPGS ---
History of Present Illness History of Present Illness Consent: Risks, benefits, and alternatives have been discussed and questions answered. Patient agrees to proceed with procedure. Chief complaint: ESPERANZA Narrative: Jose Bhatti is a 72 year old male with esperanza that required blood transfusion in the past, denies overt gib, he is on eliquis and baby aspirin. Had colonoscopy but over 10 years ago, never had egd. Review of Systems Constitutional: Constitutional: Denies headache(s) and Denies weakness Eyes: Eyes: Denies blurry vision ENT: Reports Normal hearing present, Denies headache(s) and Denies neck pain Cardiovascular: Cardiovascular: Denies chest pain and Denies dyspnea Respiratory: Respiratory: Denies dyspnea Gastrointestinal: Gastrointestinal: Reports no additional gastrointestinal complaints Genitourinary: Genitourinary: Denies dysuria Musculoskeletal: Musculoskeletal: Denies neck pain Integumentary/Breasts: Skin/Breast: Denies dry skin Neurologic: Reports Normal hearing present, Denies headache(s) and Denies weakness Psychiatric: Psychiatric: Denies anxiety Endocrine: Endocrine: Denies change in body appearance Hematologic/Lymphatic: Hematologic/Lymphatic: Denies easy bleeding Allergic/Immunologic: Allergic/Immunologic: Denies urticaria PMFSH Past Medical History Medical History Benign essential hypertension Bladder cancer Chronic atrial fibrillation DVT (deep venous thrombosis) 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 Gastroesophageal reflux disease without esophagitis Hyperlipidemia Hypertension Prostate cancer screening Umbilical hernia without obstruction and without gangrene UTI (urinary tract infection) Surgical History Surgical History H/O cataract extraction H/O four vessel coronary artery bypass graft In , after an [place] and CHF H/O heart artery stent Has had these procedures since his CABG History of appendectomy History of bladder surgery Diagnosed in 2021, treated with cautery History of tonsillectomy and adenoidectomy S/P colonoscopy with polypectomy Family History Family History Mother Diabetes mellitus Family history of arthritis Father Hypertension Family history of cardiovascular disease Family history of congestive heart failure Social History Social History (Updated 11/09/22 @ 12:16 by Sayra Arceo MD) Social History: The patient is and lives with his and he is retired. 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 The patient is a former smoker. He denies any alcohol marijuana or illicit drugs. Code status full Smoking packs per day: 2 Smoking cigarettes per day: 40.0 Years smoked: 22 Smoking pack-years: 44.00 Smoking status: Former smoker Tobacco type: cigarettes Alcohol intake: never Substance use: never Substance use type: does not use Lack of Transportation: YES Lack of Food: Never True Current Housing: I Have Housing Concerned About Future Housing: No Difficulty Paying Gas/Electric Bills: No Difficulty Paying for Meds: No Currently Unemployed: No Education: High School Diploma/GED Difficulty w/ Childcare or Family Care: No Living arrangements: with family Spiritual care concerns: No Meds Home Medications and Allergies Home Medications Medication Instructions Recorded Confirmed Type amlodipine 5 mg tablet 5 mg PO DAILY 11/08/22 11/29/22 History apixaban 5 mg tablet (Eliquis) 5 mg PO BID 11/08/22 11/29/22 History aspirin 81 mg tablet 81 mg PO DAILY 11/08/22 11/29/22 History ferrous sulfate 47.5 mg PO DAILY 11/08/22 11/29/22 History irbesartan 300 1 tablet PO DAILY 11/08/22 11/29/22 History mg-hydrochlorothiazide 12.5 mg tablet isosorbide mononitrate 30 mg 30 mg PO DAILY 11/08/2211/29
--- NOTE | 2022-12-07 10:40 | WPDANESEPPF ---
Anes - Initial Pre Proc Eval Procedure: Operation Date: 12/07/22 11:00 Proposed Procedures p Esophagogastroduodenoscopy & Colonoscopy - Yoni Feliciano MD Date/Time: 12/07/22 10:40 Surgeon: Yoni Feliciano MD Pre Op Diagnosis: JOSIANE Patient Data Age: 72 Gender: M Height: 1.78 m Weight: 93.8 kg Last Vital Signs Temp 98.2 F 12/07/22 09:54 Pulse 76 12/07/22 09:54 Resp 18 12/07/22 09:54 BP 143/68 H 12/07/22 09:54 Pulse Ox 97 12/07/22 09:54 O2 Del Method Room Air 12/07/22 09:54 Allergies Allergy/AdvReac Type Severity Reaction Status Date / Time codeine Allergy Unknown Rash Verified 12/07/22 09:50 propoxyphene Allergy Unknown Rash Verified 12/07/22 09:50 Sulfa (Sulfonamide Allergy Unknown Rash Verified 12/07/22 09:50 Antibiotics) clindamycin AdvReac Severe ACID REFLUX Verified 12/07/22 09:50 PROPOXYPHENE HCL Allergy Severe RASH, Uncoded 12/07/22 09:50 SWELLING PROPOXYPHENE NAPSYLATE Allergy Severe SWELLING, Uncoded 12/07/22 09:50 RASH Home Medications Medication Instructions Recorded Confirmed Type amlodipine 5 mg tablet 5 mg PO DAILY 11/08/22 11/29/22 History apixaban 5 mg tablet (Eliquis) 5 mg PO BID 11/08/22 11/29/22 History aspirin 81 mg tablet 81 mg PO DAILY 11/08/22 11/29/22 History ferrous sulfate 47.5 mg PO DAILY 11/08/22 11/29/22 History irbesartan 300 1 tablet PO DAILY 11/08/22 11/29/22 History mg-hydrochlorothiazide 12.5 mg tablet isosorbide mononitrate 30 mg 30 mg PO DAILY 11/08/22 11/29/22 History tablet,extended release 24 hr omega-3 fatty acids 1,000 mg PO DAILY 11/08/22 11/29/22 History ropinirole 0.25 mg tablet 0.25 mg PO BID 11/08/22 11/29/22 History esomeprazole magnesium 40 mg 40 mg PO DAILY 11/09/22 11/29/22 History capsule,delayed release (Nexium) ezetimibe 10 mg tablet (Zetia) 10 mg PO QAM #30 tabs 11/13/22 11/29/22 Rx nebivolol 5 mg tablet (Bystolic) 5 mg PO DAILY #30 tabs 11/13/22 11/29/22 Rx furosemide 40 mg tablet (Lasix) 40 mg PO DAILY #14 tabs 11/15/22 11/29/22 Rx potassium chloride 20 mEq 20 meq PO DAILY #14 tabs 11/15/22 11/29/22 Rx tablet,extended release Patient hx anesthesia problems: none Family hx anesthesia problems: none Results Review: All pre-operative results and documents have been reviewed as part of the pre-operative evaluation. 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 Gastroesophageal reflux disease without esophagitis Hyperlipidemia Hypertension Prostate cancer screening Umbilical hernia without obstruction and without gangrene UTI (urinary tract infection) Surgical History Surgical History H/O cataract extraction H/O four vessel coronary artery bypass graft In , after an [place] and CHF H/O heart artery stent Has had these procedures since his CABG History of appendectomy History of bladder surgery Diagnosed in 2021, treated with cautery History of tonsillectomy and adenoidectomy S/P colonoscopy with polypectomy Family History Family History Mother Diabetes mellitus Family history of arthritis Father Hypertension Family history of cardiovascular disease Family history of congestive heart failure Social History Social History (Updated 11/09/22 @ 12:16 by Sayra Arceo MD) Social History: The patient is and lives with his and he is retired. He also has a daughter Breanne as a field contact technician. The patient is a former smoker. He denies any alcohol marijuana or illicit drugs. Code status full Smoking packs per day: 2 Smoking cigarettes per day: 40.0 Years smoked: 22 Smoking pack-years: 44.00 Smoking status: For
--- NOTE | 2022-12-07 11:01 | SUR.OPER ---
EGD completed at 1052, Colonoscopy started at 1056
[2022-12-07 11:09] VITALS: BP 135/64; PULSE 76; RESP 22; O2SAT 100
[2022-12-07 11:19] VITALS: BP 126/63; PULSE 61; RESP 18; O2SAT 100
[2022-12-07 11:29] VITALS: BP 130/67; PULSE 67; RESP 20; O2SAT 100
== END 2022-12-07 11:36 | disposition home or self-care (01) ==
PROVIDERS: PCP Internal Medicine; Visit Provider Internal Medicine Gastroenterology
PROC: 0DJ08ZZ Inspection of Upper Intestinal Tract, Via Natural or Artificial Opening Endoscopic (ICD-10-PCS; CPT 43235; principal; 2022-12-07 11:00)
DX: D50.9 Iron deficiency anemia, unspecified (principal); K57.30 Diverticulosis of large intestine without perforation or abscess without bleeding; D12.2 Benign neoplasm of ascending colon; I11.9 Hypertensive heart disease without heart failure; K21.9 Gastro-esophageal reflux disease without esophagitis; E78.5 Hyperlipidemia, unspecified; I25.2 Old myocardial infarction; Z79.01 Long term (current) use of anticoagulants; Z79.82 Long term (current) use of aspirin; Z95.1 Presence of aortocoronary bypass graft; Z86.718 Personal history of other venous thrombosis and embolism; Z95.5 Presence of coronary angioplasty implant and graft; Z87.891 Personal history of nicotine dependence
CPT/HCPCS: 45385; 43239; 88305; J2704; J7120

== ENCOUNTER 2023-02-11 07:59 | Emergency (ER) | payer MEDICARE, SELFPAY ==
[2023-02-11] VITALS (57 sets, daily range): BP systolic 71–124; BP diastolic 40–63; PULSE 63–87; RESP 13–29; TEMP 36.4–36.8; O2SAT 95–100
--- NOTE | ~2023-02-11 | XR_ITS ---
EXAMINATION: XR chest 1V portable INDICATION: Shortness of breath TECHNIQUE: Portable AP chest at 0833 hours COMPARISON: 11/15/2022 FINDINGS: The lungs are hyperinflated. There are diffuse interstitial opacities. No pleural effusion or pneumothorax. The heart size is normal. Median sternotomy wires and mediastinal surgical clips are seen, likely from prior coronary artery bypass grafting. IMPRESSION: 1. Diffuse interstitial opacities, likely mild pulmonary edema. Reviewed, dictated and finalized at location F. ING SITTER
--- NOTE | 2023-02-11 08:05 | ECG_ITS ---
Measurements Intervals [place] Rate: 78 P: MI: 0 QRS: 76 QRSD: 101 T: -7 QT: 417 QTc: 476 Interpretive Statements ATRIAL FIBRILLATION BORDERLINE ST-T WAVE ABNORMALITY- DIFFUSE LEADS ABNORMAL ECG COMPARED TO ECG 11/08/2022 12:25:11 NO SIGNIFICANT CHANGES Electronically Signed On 02-11-2023 10:36:42 PC SUPPORT SPECIALIST by Lele Cano D.O.
--- NOTE | 2023-02-11 08:22 | ED.GENADULT ---
HPI - General Adult General Chief complaint: Shortness of Breath/Dyspnea Stated complaint: shortness of breath Time Seen by Provider: 02/11/23 08:09 History of Present Illness HPI narrative: 72-year-old male presenting to the emergency department for evaluation of increased generalized fatigue. Patient states he does have history of CHF and has had recent issues with anemia due to an unknown cause. Patient is on Eliquis and was started on a diuretic during his recent admission. Patient states he has had follow-up with Cardiology and does have increased urinary output. Patient states that over the course of the last few days he has had worsening fatigue. Patient is very pale Related Data Home Medications Medication Instructions Recorded Confirmed amlodipine 5 mg tablet 5 mg PO DAILY 11/08/22 11/29/22 apixaban 5 mg tablet (Eliquis) 5 mg PO BID 11/08/22 11/29/22 aspirin 81 mg tablet 81 mg PO DAILY 11/08/22 11/29/22 ferrous sulfate 47.5 mg PO DAILY 11/08/22 11/29/22 irbesartan 300 1 tablet PO DAILY 11/08/22 11/29/22 mg-hydrochlorothiazide 12.5 mg tablet isosorbide mononitrate 30 mg 30 mg PO DAILY 11/08/22 11/29/22 tablet,extended release 24 hr omega-3 fatty acids 1,000 mg PO DAILY 11/08/22 11/29/22 ropinirole 0.25 mg tablet 0.25 mg PO BID 11/08/22 11/29/22 esomeprazole magnesium 40 mg 40 mg PO DAILY 11/09/22 11/29/22 capsule,delayed release (Nexium) Allergies Allergy/AdvReac Type Severity Reaction Status Date / Time codeine Allergy Unknown Rash Verified 02/11/23 08:00 propoxyphene Allergy Unknown Rash Verified 02/11/23 08:00 Sulfa (Sulfonamide Allergy Unknown Rash Verified 02/11/23 08:00 Antibiotics) clindamycin AdvReac Severe ACID REFLUX Verified 02/11/23 08:00 PROPOXYPHENE HCL Allergy Severe RASH, Uncoded 02/11/23 08:00 SWELLING PROPOXYPHENE NAPSYLATE Allergy Severe SWELLING, Uncoded 02/11/23 08:00 RASH Review of Systems Review of Systems: All systems reviewed & are unremarkable except as noted in HPI and below PMFSH Past Medical History Medical History Benign essential hypertension Bladder cancer Chronic atrial fibrillation DVT (deep venous thrombosis) 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 Gastroesophageal reflux disease without esophagitis Hyperlipidemia Hypertension Prostate cancer screening Umbilical hernia without obstruction and without gangrene UTI (urinary tract infection) Surgical History Surgical History H/O cataract extraction H/O four vessel coronary artery bypass graft In , after an [place] and CHF H/O heart artery stent Has had these procedures since his CABG History of appendectomy History of bladder surgery Diagnosed in 2021, treated with cautery History of tonsillectomy and adenoidectomy S/P colonoscopy with polypectomy Family History Family History Mother Diabetes mellitus Family history of arthritis Father Hypertension Family history of cardiovascular disease Family history of congestive heart failure Social History Social History (Updated 11/09/22 @ 12:16 by Sayra Arceo MD) Social History: The patient is and lives with his and he is retired. He also has a daughter Breanne as a personal clothing laundry aide. The patient is a former smoker. He denies any alcohol marijuana or illicit drugs. Code status full Smoking packs per day: 2 Smoking cigarettes per day: 40.0 Years smoked: 22 Smoking pack-years: 44.00 Smoking status: Former smoker Tobacco type: cigarettes Alcohol intake: never Substance use: never Substance use type: does not use Lack of Transportation: YES Lack of Food: Never True Current Housing: I Have Housing Concerned About Future Housing: No Difficulty Paying Gas/Electric Bills: No Difficulty Paying for Meds: No Curren
[2023-02-11 08:35] LABS: Basophils Percent Auto 0.3 % (0.2-1.2); Eosinophils Percent Auto 0.1 % (0-4.4); Immature Granulocyte Absolute 0.04 K/mm3 (0.00-0.031); Immature Granulocyte Percent A 0.4 % (0-0.5); Lymphocytes Absolute Auto 0.46 K/mm3 (0.9-3.2); Lymphocytes Percent Auto 5.1 % (18.3-44.2); Mean Corpuscular HGB Conc 28.9 g/dl (32-36); Mean Corpuscular Volume 89.9 fl (80-100); Mean Platelet Volume 11.2 fl (7.4-10.4); Monocytes Absolute Auto 1.1 K/mm3 (0.1-0.6); Monocytes Percent Auto 11.9 % (2.6-8.5); Neutrophils Absolute Auto 7.4 K/mm3 (1.3-6.7); Neutrophils Percent Auto 82.2 % (45.5-73.1); Platelet Count Result 202 k/mm3 (150-375); Red Blood Count 2.08 M/mm3 (4.6-6.20); Red Cell Distribution Width 18.4 % (11.5-14.5)
[2023-02-11 08:43] LABS: Appearance Urine Cloudy (Clear); Bacteria Urine None Seen /hpf; Bilirubin Urine Negative (Negative); Blood Urine 3+ (Negative); Color Urine Yellow (Yellow); Glucose Urine UA Negative (Negative); Ketones Urine Negative (Negative); Leukocyte Esterase Ur 1+ LEU/UL (Negative); Nitrate Urine Negative (Negative); Non Pathogenic Casts 0-2; Protein Urine Negative (Negative); RBC Urine 51-100 /hpf (0-2); Specific Grav Ur 1.017 (1.001-1.035); Squamous Epithelial Cell Urine Occasional /hpf (Few); WBC Urine 21-50 /hpf; pH Urine 5.5 (5.0-9.0)
[2023-02-11 08:45] LABS: Alanine Aminotransferase 19 U/L (6-50); Albumin Level 3.7 g/dL (3.5-5.1); Alkaline Phosphatase 77 U/L (38-126); Anion Gap 10 mmol/L (8-16); Aspartate Amino Transferase 28 U/L (17-59); Bilirubin,Total 0.9 mg/dL (0.2-1.3); Blood Urea Nitrogen 42 mg/dL (9-20); Calcium 8.6 mg/dL (8.4-10.2); Carbon Dioxide 20 mmol/L (22-30); Chloride 100 mmol/L (98-107); Estimated CRCL calculation 61 ml/min; Estimated Glomerular Filt Rate > 60; Glucose 151 mg/dL (65-110); Magnesium 2.1 mg/dL (1.6-2.3); Potassium 3.9 mmol/L (3.4-5.0); Sodium 130 mmol/L (137-145)
[2023-02-11 08:49] LABS: INR 2.1; Prothrombin Time 24.7 Seconds (11.1-14.7)
[2023-02-11 08:50] LABS: Partial Thromboplastin Time 31.8 SECONDS (22.3-36.8)
[2023-02-11 08:51] LABS: Add Urine Microscopic? YES
[2023-02-11 09:00] LABS: NT Pro B Type Natriuretic Pept 2680 pg/mL (19.9-100)
[2023-02-11 09:01] LABS: Hematocrit 18.7 % (42.0-52.0); Hemoglobin 5.4 g/dL (14.0-18.0)
[2023-02-11 09:11] LABS: Influenza A QL RT-PCR Negative (Negative); Influenza B QL RT-PCR Negative (Negative); RSV RNA, RT-PCR Negative (Negative); SARS-CoV-2 RNA PCR Negative (Negative)
[2023-02-11] MEDS: FUROSEMIDE INJ 40 MG/4 ML VIAL IV PUSH (09:22)
[2023-02-11] MEDS: SODIUM CHLORIDE 0.9% IV 500 ML 999 ML IV CONT (09:52)
[2023-02-11] MEDS: TUBING, BLOOD SET 1 EACH XX ×2 (09:52→11:14)
[2023-02-11] MEDS: SODIUM CHLORIDE 0.9% IV 250 ML 30 ML IV CONT (09:52)
[2023-02-11] MEDS: PANTOPRAZOLE SODIUM IV 40 MG VIAL 80 MG IV PUSH (15:00)
[2023-02-11 15:17] LABS: Hemoglobin 6.8 g/dL (14.0-18.0)
== END 2023-02-11 17:17 | disposition short-term general hospital (02) ==
PROVIDERS: Emergency Provider Emergency Medicine; PCP Internal Medicine
DX: I24.89 Other forms of acute ischemic heart disease (principal); D64.9 Anemia, unspecified; K92.2 Gastrointestinal hemorrhage, unspecified; Z20.822 Contact with and (suspected) exposure to COVID-19; I10 Essential (primary) hypertension; I48.20 Chronic atrial fibrillation, unspecified; I50.9 Heart failure, unspecified; I25.2 Old myocardial infarction; E78.5 Hyperlipidemia, unspecified; K21.9 Gastro-esophageal reflux disease without esophagitis; Z95.1 Presence of aortocoronary bypass graft; Z95.5 Presence of coronary angioplasty implant and graft; Z98.49 Cataract extraction status, unspecified eye; Z87.440 Personal history of urinary (tract) infections; Z85.51 Personal history of malignant neoplasm of bladder; Z87.891 Personal history of nicotine dependence; Z86.718 Personal history of other venous thrombosis and embolism; Z79.01 Long term (current) use of anticoagulants; R94.31 Abnormal electrocardiogram [ECG] [EKG]
CPT/HCPCS: 36415; 36430; 71045; 80053; 81001; 83735; 83880; 84484; 85014; 85018; 85025; 85610; 85730; 86850; 86900; 86901; 86923; 87086; 87637; 93005; 96361; 96374; 96375; 99285; C9113; J1940; J7040; J7050; P9016

== ENCOUNTER 2023-06-20 10:41 | Emergency (ER) | payer MEDICARE, SELFPAY ==
--- NOTE | ~2023-06-20 | XR_ITS ---
EXAMINATION: XR chest 2V DATE: 06/20/2023 14:20 INDICATION: Shortness of breath. Cough. TECHNIQUE: Frontal and lateral views of the chest were obtained on 3 radiographs. COMPARISON: Chest single view 02/11/2023 FINDINGS: There is a diffuse interstitial pattern in the lungs, consistent with mild pulmonary edema. There are small pleural effusions. No pneumothorax. Cardiomegaly is noted. Median sternotomy wires a nd mediastinal surgical clips are seen, likely from prior coronary artery bypass grafting. IMPRESSION: 1. Mild pulmonary edema. 2. Small pleural effusions. 3. Cardiomegaly. Reviewed, dictated and finalized at location A.
[2023-06-20 10:54] VITALS: BP 136/88; PULSE 81; RESP 20; TEMP 36.6; O2SAT 91
[2023-06-20 11:15] LABS: Basophils Absolute Auto 0.1 K/mm3 (0.0-0.1); Basophils Percent Auto 1.1 % (0.2-1.2); Eosinophils Absolute Auto 0.2 K/mm3 (0-0.3); Eosinophils Percent Auto 2.6 % (0-4.4); Hematocrit 30.4 % (42.0-52.0); Hemoglobin 8.8 g/dL (14.0-18.0); Immature Granulocyte Absolute 0.01 K/mm3 (0.00-0.031); Immature Granulocyte Percent A 0.2 % (0-0.5); Lymphocytes Absolute Auto 0.47 K/mm3 (0.9-3.2); Lymphocytes Percent Auto 8.3 % (18.3-44.2); Mean Corpuscular HGB Conc 28.9 g/dl (32-36); Mean Corpuscular Volume 86.4 fl (80-100); Mean Platelet Volume 11.5 fl (7.4-10.4); Monocytes Absolute Auto 0.9 K/mm3 (0.1-0.6); Monocytes Percent Auto 15.8 % (2.6-8.5); Neutrophils Absolute Auto 4.1 K/mm3 (1.3-6.7); Platelet Count Result 164 k/mm3 (150-375); Red Blood Count 3.52 M/mm3 (4.6-6.20); Red Cell Distribution Width 16.6 % (11.5-14.5); White Blood Count 5.7 K/mm3 (4.5-10.0)
[2023-06-20 11:22] LABS: Alanine Aminotransferase 25 U/L (6-50); Alkaline Phosphatase 128 U/L (38-126); Anion Gap 6 mmol/L (4-12); Aspartate Amino Transferase 36 U/L (17-59); Bilirubin,Total 1.4 mg/dL (0.2-1.3); Blood Urea Nitrogen 22 mg/dL (9-20); Calcium 9.2 mg/dL (8.4-10.2); Carbon Dioxide 29 mmol/L (22-30); Chloride 103 mmol/L (98-107); Estimated CRCL calculation 82 ml/min; Estimated Glomerular Filt Rate > 60; Glucose 125 mg/dL (65-110); Potassium 3.9 mmol/L (3.4-5.0); Sodium 138 mmol/L (137-145)
[2023-06-20 11:25] LABS: INR 1.3; Prothrombin Time 17.1 Seconds (11.1-14.7)
[2023-06-20 11:26] LABS: Partial Thromboplastin Time 32.5 Seconds (22.3-36.8)
[2023-06-20 11:42] LABS: Hypochromasia 2+; Ovalocytes 2+; Platelet Estimate Adequate (Adequate); Schistocytes None Seen; Tear Drop Cells 2+
[2023-06-20 11:43] LABS: Helmet Cells 1+; Polychromasia 1+
--- NOTE | 2023-06-20 12:39 | ED.RECABL ---
HPI - Recheck/Abnormal Lab/Rx General Chief Complaint: Recheck/Abnormal Lab/Rx <CLIFTON Miller Last Filed: 06/20/23 12:52> Stated Complaint: blood transfusion <CLIFTON Miller Last Filed: 06/20/23 12:52> Time Seen by Provider: 06/20/23 12:39 <CLIFTON Miller Last Filed: 06/20/23 12:52> Focused HPI: Patient is a 73 y/o male who presents to the ED with c/o SOB. Patient reports he has not felt well for the past 1 week. C/o fatigue, SOB - worse with exertion, cough, pallor, decreased appetitive. He has hx of anemia and has had two previous blood transfusions in the last year, and states he felt similar. Denies rectal bleeding, melena, epistaxis. Within the last 1 year, has had EGD/colonoscopy which did not show evidence of GI bleeding. He has hx of bladder CA with chronic hematuria. He states he is scheduled to undergo surgery for his bladder tumor soon. Also has Hx of aortic valvular disease and son reports he has to be evaluated for the bladder CA first before he can have his aortic valve fixed. Scheduled to see Dr. Jarrett with Cardiology at [facility] on Tuesday. GENERAL: Well-appearing, obese with BMI 31.1, mildly pale appearing, and in no acute distress. HEAD: Normocephalic, atraumatic. CHEST: Clear to auscultation. ?Mildly tachypneic. Some abdominal accessory muscle use. Decreased lung sounds in the bases bilaterally. HEART: Regular rate and rhythm.? NEURO: ?Alert and oriented x3. Patient screened in triage and initial orders placed.? ?Additional care and disposition to be based upon?diagnostic testing and treatment. <CLIFTON Miller Last Filed: 06/20/23 12:52> Source: patient <CLIFTON Miller Last Filed: 06/20/23 12:52> Mode of arrival: ambulatory <CLIFTON Miller Last Filed: 06/20/23 12:52> Limitations: no limitations <Reba Soriano PA-C - Last Filed: 06/20/23 12:52> History of Present Illness HPI narrative: 73-year-old with a history of bladder CA, iodoquinol disease here with complaints of shortness of breath. Patient states that he was here for preop lab work who thought he needed blood transfusion. Patient presently denies having any chest pain, fever or chills denies any nausea vomiting or blood in the stool. <Gonzalo Sanchez MD - Last Filed: 06/20/23 15:13> Related Data Home Medications: Home Medications Medication Instructions Recorded Confirmed amlodipine 5 mg tablet 5 mg PO DAILY 11/08/22 11/29/22 apixaban 5 mg tablet (Eliquis) 5 mg PO BID 11/08/22 11/29/22 aspirin 81 mg tablet 81 mg PO DAILY 11/08/22 11/29/22 ferrous sulfate 47.5 mg PO DAILY 11/08/22 11/29/22 irbesartan 300 1 tablet PO DAILY 11/08/22 11/29/22 mg-hydrochlorothiazide 12.5 mg tablet isosorbide mononitrate 30 mg 30 mg PO DAILY 11/08/22 11/29/22 tablet,extended release 24 hr omega-3 fatty acids 1,000 mg PO DAILY 11/08/22 11/29/22 ropinirole 0.25 mg tablet 0.25 mg PO BID 11/08/22 11/29/22 esomeprazole magnesium 40 mg 40 mg PO DAILY 11/09/22 11/29/22 capsule,delayed release (Nexium) <Reba Soriano PA-C - Last Filed: 06/20/23 12:52> Allergies/Adverse Reactions: Allergies Allergy/AdvReac Type Severity Reaction Status Date / Time codeine Allergy Unknown Rash Verified 06/20/23 10:41 propoxyphene Allergy Unknown Rash Verified 06/20/23 10:41 Sulfa (Sulfonamide Allergy Unknown Rash Verified 06/20/23 10:41 Antibiotics) clindamycin AdvReac Severe ACID REFLUX Verified 06/20/23 10:41 PROPOXYPHENE HCL Allergy Severe RASH, Uncoded 02/11/23 08:00 SWELLING PROPOXYPHENE NAPSYLATE Allergy Severe SWELLING, Uncoded 02/11/23 08:00 RASH <Reba Soriano PA-C - Last Filed: 06/20/23 12:52> Review of Systems Review of Systems: All systems reviewed & are unremarkable except as noted in HPI and below <Gonzalo Sanchez MD - Last Filed: 06/20/23 15:13> Constitutional: Constituti
--- NOTE | 2023-06-20 12:42 | ECG_ITS ---
Measurements Intervals [place] Rate: 81 P: IN: 0 QRS: 92 QRSD: 92 T: 70 QT: 399 QTc: 464 Interpretive Statements ATRIAL FIBRILLATION BORDERLINE RIGHT AXIS DEVIATION [QRS AXIS > 90] NONSPECIFIC ST & T-WAVE ABNORMALITY ABNORMAL RHYTHM ECG COMPARED TO ECG 02/11/2023 08:16:09 NO SIGNIFICANT CHANGE Electronically Signed On 06-20-2023 13:20:42 CDT by Caleb Meek M.D.
[2023-06-20 13:15] LABS: Troponin I < 0.012 ng/mL (0.000-0.034)
[2023-06-20 13:19] LABS: NT Pro B Type Natriuretic Pept 1560 pg/mL (19.9-100)
[2023-06-20 13:23] VITALS: RESP 20; O2SAT 95
[2023-06-20 13:38] LABS: Influenza A QL RT-PCR Negative (Negative); Influenza B QL RT-PCR Negative (Negative); RSV RNA, RT-PCR Negative (Negative); SARS-CoV-2 RNA PCR Negative (Negative)
[2023-06-20 13:44] LABS: Appearance Urine Cloudy (Clear); Bacteria Urine None Seen /hpf; Bilirubin Urine 1+ (Negative); Blood Urine 3+ (Negative); Color Urine Dark Yellow (Yellow); Glucose Urine UA Negative (Negative); Ketones Urine Negative (Negative); Leukocyte Esterase Ur 2+ LEU/UL (Negative); Nitrate Urine Negative (Negative); Non Pathogenic Casts 0-2; Protein Urine 2+ mg/dL (Negative); RBC Urine >100 /hpf (0-2); Specific Grav Ur 1.023 (1.001-1.035); Squamous Epithelial Cell Urine None Seen /hpf (Few); WBC Urine >100 /hpf (0-3); pH Urine 6.5 (5.0-9.0)
[2023-06-20 13:49] LABS: Add Urine Microscopic? YES
== END 2023-06-20 15:34 | disposition home or self-care (01) ==
LOC: ANHED 15:12
PROVIDERS: Physician Assistant; Emergency Provider Family Medicine; PCP Internal Medicine
DX: D64.9 Anemia, unspecified (principal); Z20.822 Contact with and (suspected) exposure to COVID-19; C67.9 Malignant neoplasm of bladder, unspecified; R31.9 Hematuria, unspecified; I35.9 Nonrheumatic aortic valve disorder, unspecified; I50.9 Heart failure, unspecified; I11.0 Hypertensive heart disease with heart failure; I25.2 Old myocardial infarction; E78.5 Hyperlipidemia, unspecified; K21.9 Gastro-esophageal reflux disease without esophagitis; Z95.1 Presence of aortocoronary bypass graft; Z86.718 Personal history of other venous thrombosis and embolism; Z87.440 Personal history of urinary (tract) infections; Z87.891 Personal history of nicotine dependence; Z98.49 Cataract extraction status, unspecified eye; Z79.82 Long term (current) use of aspirin; Z79.01 Long term (current) use of anticoagulants; I51.7 Cardiomegaly; J81.1 Chronic pulmonary edema; I48.91 Unspecified atrial fibrillation; R94.31 Abnormal electrocardiogram [ECG] [EKG]
CPT/HCPCS: 36415; 71046; 80053; 81001; 83880; 84484; 85025; 85610; 85730; 86850; 86900; 86901; 87086; 87637; 93005; 99284